=== PATIENT | female | born 1960 | race African-American/Black ===

== ENCOUNTER 2016-04-27 18:15 | Inpatient (IN) | payer OTHER ==
[~2016-04-27] VITALS: Ht 165.1 cm; Wt 73.9 kg
[~2016-04-27 18:15] MED LIST: AMLODIPINE10 MG PO; AMOXICILLIN500 MG PO; BENTYL20 MG PO; CARISOPRODOL350 MG PO; CIPRO500 M1 PO; FLAGYL500 MG PO; FUROSEMIDE40 MG PO; INTERMEZZO1.75 MG PO; LEVETIRACETAM500 MG PO; LYRICA75 MG PO; METOPROLOL TAR100 MG PO; MYCOPHENOLIC A360 MG PO; OMEPRAZOLE40 MG PO; OXYCODONE HCL15 MG PO; OXYCODONE HYDRO30 MG PO; OXYCONTIN60 MG PO; PERCOCET 325 MG1 TA2 PO; PREDNISONE5 MG PO; PROGRAF 0.5MG0.5 MG PO; PROGRAF 1MG1 MG PO; STARLIX PO; TACROLIMUS1 MG PO; VALTREX1 GM PO; ZOFRAN ODT4 M1 PO; ZOFRAN4 M1 PO; ZOLPIDEM TART12.5 MG PO; [UNRECOGNIZED DRUG - OTHER] PO
--- NOTE | 2016-04-27 18:35 | NUR ---
PT TO ROOM18 BIBA FROM HOME UNRESPONSIVE. PER FAMILY PT HAS BEEN SLEEPING ALL DAY, LAST TIME PT SEEN AWAKE AROUND 1400. PT RECEIVED 0.8 OF NARCAN IV BY COMPUTER FORENSICS INVESTIGATOR AND BECAME RESPONSIVE TO TACTILE STIMULI AND VOICE. ON ARRIVAL PT UNRESPONSIVE, PUPILS 6MM FIXED, NSR ON MONITOR 90'S, PT ON O2 2L NC, O2SAT 95%, RR 14. EKG DONE, PT SENT TO CAT SCAN BY STRETCHER. HX OF CHF,HTN,CVA,SEIZURE,KIDNEY TRANSPLANT.
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
--- NOTE | 2016-04-27 19:00 | NUR ---
PT RETURNED FROM CT. BLOOD WORK DONE BY ALMA DUDLEY. IV EST RH G20. RAD AT BEDSIDE FOR CHEST XRAY.
[2016-04-27 19:08] LABS: ABSOLUTE BASOPHIL COUNT 0 /CUMM (0.0-0.2); ABSOLUTE EOSINOPHIL COUNT 0.1 /CUMM (0.0-0.7); ABSOLUTE LYMPH COUNT 2.4 /CUMM (1.2-3.4); ABSOLUTE MONOCYTE COUNT 0.5 /CUMM (0.10-0.60); BASOPHIL % 0.5 % (0.0-2.0); EOSINOPHIL % 0.7 % (0-5); GRANULOCYTE % 66.1 % (42.2-75.2); HEMATOCRIT 46.1 % (37-47); MEAN CORPUSCULAR HGB 31.2 PG (27.0-31.0); MEAN CORPUSCULAR HGB CONC 33.1 G/DL (33.0-37.0); MEAN CORPUSCULAR VOLUME 94.3 FL (81.0-99.0); MEAN PLATELET VOLUME 8.4 FL (7.4-10.4); PLATELET COUNT 224 /CUMM (130-400); RBC DISTRIBUTION WIDTH 16.2 % (11.5-14.5); RED BLOOD CELL CT 4.89 /CUMM (4.20-5.40); WHITE BLOOD CELL COUNT 9.1 /CUMM (4.8-10.8)
[2016-04-27] MEDS ORDERED: PROGRAF1 M1 PO ×2 (19:10→19:11)
[2016-04-27] MEDS ORDERED: PROGRAF0.5 MG PO (19:11)
[2016-04-27] MEDS ORDERED: AMLODIPINE BESYL5 M1 PO (19:12)
[2016-04-27] MEDS ORDERED: HORIZANT600 M1 (19:13)
--- NOTE | 2016-04-27 19:15 | RADIOLOGY REPORT ---
EXAMINATION: XR PORTABLE CHEST CLINICAL INFORMATION: Question pneumonia COMPARISON: Chest x-ray 09/03/2014 TECHNIQUE: Portable AP supine view of the chest was obtained. FINDINGS: Heart size is upper limits of normal. The aorta is tortuous and ectatic and unchanged. Pulmonary vascularity is within normal limits. There is some subsegmental atelectasis at the left base. No other focal finding is seen in the lungs. There is no pneumothorax or pleural effusion. There is an incidental azygos lobe and fissure in the right apex. No acute bony abnormality is seen IMPRESSION: There is some subsegmental atelectasis of the left base new since prior study. Lungs are otherwise clear. No other change.
[2016-04-27 19:16] LABS: PT 11.8 SEC (9.4-12.5); PTT 29 SEC (25-37)
--- NOTE | 2016-04-27 19:17 | NUR ---
RESP AT BEDSIDE FOR ABG.
[2016-04-27] MEDS ORDERED: VITAMIN D1000 UNIT PO (19:18)
[2016-04-27] MEDS ORDERED: MULTI-DAY VITA1 EACH PO (19:18)
--- NOTE | 2016-04-27 19:25 | CT SCAN REPORT ---
EXAMINATION: CT HEAD WITHOUT CONTRAST CT CERVICAL SPINE WITHOUT CONTRAST CLINICAL INFORMATION: Unresponsive. Assess for bleed or injury. COMPARISON: MRI scan cervical spine 08/03/[address] scan of the head 08/25/2006. TECHNIQUE: Multidetector CT imaging of the head and cervical spine was performed without the use of intravenous contrast. Coronal and sagittal reformatted images were generated at the technologist workstation. DLP: 1871.6 mGy-cm. FINDINGS: CT head: There is no evidence of acute intracranial hemorrhage or territorial infarction. No abnormal mass-effect or midline shift is seen. Copeland to white matter differentiation is well preserved. No extra-axial fluid collections are identified. The ventricles are normal in size. There is no abnormal attenuation within the brain parenchyma. The osseous structures and soft tissues are normal. The mastoid air cells are well-aerated. There is mild mucoperiosteal thickening in the inferior left maxillary sinus. CT cervical spine: There is reversal of the cervical lordosis. There is a mild degenerative retrolisthesis of C6 on C7, which was less prominent on the prior study. There is marked narrowing of intervertebral disc height at this level with degenerative endplate contour changes. There is also narrowing of intervertebral disc height at C5-C6. There are marginal osteophytes at both these levels. There are no acute compression fractures and vertebral body heights are maintained. There is foraminal narrowing at C5-C6 and C6-C7 bilaterally. The lateral masses of C1 and C2 are normally aligned and the dens is intact. Atlantoaxial alignment is maintained. The prevertebral soft tissues are unremarkable. There is an incidental azygous lobe. The visualized lung apices are unremarkable. IMPRESSION: 1. There are no acute intracranial findings. 2. There are multilevel degenerative changes in the cervical spine with narrowing of intervertebral disc height and foraminal narrowing at C5-C6 and C6-C7 and there is a degenerative retrolisthesis of C6 on C7 as described above. 3. There are no acute fractures or subluxations in the cervical spine.
--- NOTE | 2016-04-27 19:42 | NUR ---
PT REMAINES UNRESPONSIVE, RESPONSES TO PAINFUL STIMULI BY MOANING, VSS. FAMILY AT BEDSIDE.
--- NOTE | 2016-04-27 20:28 | NUR ---
PT STRAIGHT CATH WITH STERILE TECHNIQUE, 150ML OF CLEAR YELLOW URINE OBTAINED AND SENT TO LAB.
--- NOTE | 2016-04-27 20:55 | NUR ---
PT AWAIKING, OPENING EYES, MOANING, BUT STILL NON-VERBAL. PT DOESN'T FOLLOW COMMANDS. VSS. SITTER AND FAMILY AT BEDSIDE.
--- NOTE | 2016-04-27 21:59 | NUR ---
2 LAV,GREEN,GALLAGHER TUBES DRAWN AND SENT TO LAB BY ALMA DUDLEY. HOUSE STAFF TO BEDSIDE FOR PT EVAL.
--- NOTE | 2016-04-27 22:21 | NUR ---
PT TO ROOM 228 BED 1
--- NOTE | 2016-04-27 22:30 | NUR ---
CRITICAL TEST RESULTS [id number] DOUGLAS TANG 56 F TESTS AND RESULTS: LACTIC ACID 4.4 Results received and read back by: NELL JONES Results received date and time: 04/27/160 The following provider was notified of the results, and read the results back: MD DENA Notified date and time: 04/27/16 at 2230
--- NOTE | 2016-04-27 22:31 | NUR ---
NS INFUSIG AT 75ML/HR PER EMAR.
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
--- NOTE | 2016-04-27 23:56 | NUR ---
LAB NEEDS SST TUBE FOR ACETONE LEVEL.
--- NOTE | 2016-04-27 23:57 | NUR ---
PT'S ASSIGNMENT 107
[2016-04-28] VITALS (8 sets, daily range): BP systolic 111–166; BP diastolic 70–90
--- NOTE | 2016-04-28 00:08 | NUR ---
REPORT GIVEN TO ICU TO THANH JACINTO.
--- NOTE | 2016-04-28 00:45 | RADIOLOGY REPORT ---
EXAMINATION: ABDOMEN 1 VIEW CLINICAL INFORMATION: Abnormal bowel sounds. COMPARISON: None. TECHNIQUE: A supine view of the abdomen is provided. FINDINGS: There are no dilated loops of small bowel. There are no air-fluid levels. There is no appendicolith. The visualized lung bases are clear. The osseous structures are unremarkable. Surgical clips are present within the right hemiabdomen and pelvis. IMPRESSION: Unremarkable bowel gas pattern.
--- NOTE | 2016-04-28 00:49 | NUR ---
PATIENT ARRIVES FROM ER VIA STRETCHER.CALLING OUT BUT NOT ANSWERING QUESTIONS DIRECTLY. NOT ORIENTED.NOT FOLLOWING COMMANDS BUT MOVING UPPER EXTREMITIES ACTIVELY.PUPILS EQUAL #5 AND REACTIVE TO LIGHT.SPEECH IS CLEAR BUT CONFUSED.MONITOR SINUS RHYTHM AT RATE OF 96.LUNG SOUNDS CLEAR. SAT=96% ON 2L NASAL O2.
--- NOTE | 2016-04-28 01:37 | Admission Certification ---
Admission Certification Certification Statement - As attending physician, I certify that at the time of - admission, based on clinical presentation, severity of - symptoms, need for further diagnostic testing and - therapeutic interventions, and risk of adverse outcomes - without in-hospital treatment, in my clinical assessment, - this patient requires an acute hospital stay for a minimum - of two nights or longer. I have also considered psychsocial - factors such as support system, advanced age, financial - issues, cognitive issues, and failed out-patient treatments, - past re-admission history, safety of patient, and lack of - compliance as applicable. Specific rationale supporting this admission is: Encephalopathy
--- NOTE | 2016-04-28 03:54 | NUR ---
PATIENT ORIENTED TO PERSON.ABLE TO TELL ME HER AGE. NOT ANSWERING QUESTION REGARDING MONTH. ABLE TO RAISE LEGS AND ARMS WITHOUT DRIFT. FOLLOWING COMMANDS.SPEECH IS CLEAR.
[2016-04-28 05:20] LABS: ABSOLUTE BASOPHIL COUNT 0 /CUMM (0.0-0.2); ABSOLUTE EOSINOPHIL COUNT 0 /CUMM (0.0-0.7); ABSOLUTE GRANULOCYTE CT 16.6 /CUMM (1.4-6.5); ABSOLUTE LYMPH COUNT 1.5 /CUMM (1.2-3.4); ABSOLUTE MONOCYTE COUNT 0.5 /CUMM (0.10-0.60); BASOPHIL % 0.1 % (0.0-2.0); EOSINOPHIL % 0.1 % (0-5); HEMATOCRIT 44.8 % (37-47); MEAN CORPUSCULAR HGB 31.4 PG (27.0-31.0); MEAN CORPUSCULAR HGB CONC 33.1 G/DL (33.0-37.0); MEAN CORPUSCULAR VOLUME 94.8 FL (81.0-99.0); MEAN PLATELET VOLUME 8.5 FL (7.4-10.4); PLATELET COUNT 209 /CUMM (130-400); RBC DISTRIBUTION WIDTH 16.2 % (11.5-14.5); RED BLOOD CELL CT 4.72 /CUMM (4.20-5.40)
[2016-04-28 05:35] LABS: WHITE BLOOD CELL COUNT 18.7 /CUMM (4.8-10.8)
--- NOTE | 2016-04-28 05:41 | NUR ---
PATIENT VOMITED APPROXIMATELY 75 ML OF MATHEWS VOMITUS.TURNED ON SIDE.O2 SAT REMAINS 98-100%.BRUISE ON R BUTTOCK NOTED.
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
--- NOTE | 2016-04-28 10:59 | RADIOLOGY REPORT ---
EXAMINATION: XR PORTABLE CHEST CLINICAL INFORMATION: Altered mental status. Elevated white count. COMPARISON: Multiple chest x-rays most recent prior dated 04/27/2016 TECHNIQUE: Portable AP view of the chest was obtained. FINDINGS: New airspace disease noted in the right midlung suspicious for evolving pneumonia. Slightly decreased right lung volume. Left lung is clear. IMPRESSION: Interval development of consolidation in the right mid lung suspicious for evolving pneumonia in the appropriate clinical setting. Repeat chest x-ray after treatment recommended.
--- NOTE | 2016-04-28 11:24 | Event Note ---
Event Note Event Note: This is a 56 years old lady who had a renal transplant in 2009 at [facility]. The patient has continued to make his follow-up with wildlife ecologist at [facility] however recently had wildlife ecologist retired and she has started seeing a new one she cannot remember the name. Provided the number for wildlife ecologist office [phone], and was dilated to leave a voicemail I left a message at around 11 AM on April said for the office to call me through the hospital number with my pager so that we can provide information about the admission solicit information if they have any interventions they like to be instituted. The wildlife ecologist office called back Patient is under care of Dr. Joey Burger. Around 2PM Dr. Burger called and confirmed home medications for the patient.
--- NOTE | 2016-04-28 12:31 | ULTRASOUND REPORT ---
EXAMINATION: US ABDOMEN COMPLETE CLINICAL INFORMATION: Altered mental status. Abnormal LFTs. Intoxication. COMPARISON: CT scan of the abdomen and pelvis 03/23/2016. TECHNIQUE: Real-time imaging of the abdominal viscera. FINDINGS: PANCREAS: The visualized pancreatic head and body are normal in appearance. The remainder of the pancreas is obscured from visualization by the overlying bowel gas. ABDOMINAL AORTA: The proximal segment is normal in caliber. INFERIOR VENA CAVA: Visualized portions are normal. LIVER: The liver demonstrates normal size and contour. There is diffuse increased echogenicity consistent with hepatic steatosis. There are no clinical hepatic lesions lesion or intrahepatic biliary duct dilatation. GALLBLADDER: The COMMON BILE DUCT: Normal in caliber measuring 0.7 cm in diameter. RIGHT KIDNEY: The right kidney is atrophic and is difficult to visualize. LEFT KIDNEY: The left kidney is atrophic, and measures 7.8 cm. There is a 1.4 cm cyst. SPLEEN: The spleen measures 8.0 cm in maximum dimension. FREE FLUID: None. OTHER: There is a right lower quadrant transplanted kidney, which measures 11 cm. There is no hydronephrosis or perinephric abnormality. IMPRESSION: 1. There is diffuse increased echogenicity of the liver consistent with hepatic steatosis. 2. The right kidney is atrophic and are not visualized. The left kidney is small and there are is a left renal cyst. 3. There is a transplant kidney in the right lower quadrant.
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
--- NOTE | 2016-04-28 23:16 | ELECTROENCEPHALOGRAM REPORT ---
Electroencephalogram Report Electroencephalogram Results Date of service: 04/28/16 Attending MD: FADUMO SKY MD Concrete Finishing Machine Operator: Genia EEG Number: [id number] Test Utilizes: Test Utilizes a 10-20 system, 21 lead, 18 channel digital recording Pertinent Hx/Physical/Neuro Findings/Clin Diagnosis: 56 year old with history of seizures, found on floor with an alteration in mental status. Inpatient Medications: Current Medications Sig/Satish Start time Last Medication Dose Route Stop Time Status Admin Acetaminophen 1,000 MG Q6P PRN 04/28 1430 AC 04/28 N/A 1 UNIT IV 2030 Amlodipine Besylate 5 MG DAILY 04/28 1000 AC PO Ampicillin Sodium/ 1,500 MG Q6 04/28 1200 DC Sulbactam Sodium IV Sodium Chloride 100 ML Ampicillin Sodium/ 1,500 MG Q6H 04/28 1100 AC 04/28 Sulbactam Sodium IV 2207 Sodium Chloride 100 ML Cholecalciferol 1,000 IU DAILY 04/28 1000 AC PO Dextrose 25 GM ONCE ONE 04/28 1000 DC 04/28 IV 04/28 1001 0956 Heparin Sodium 5,000 UNIT Q8 04/27 2258 AC 04/28 (Porcine) SC 2204 Influenza Virus 0.5 ML ONCE ONE 04/28 0815 DC Vaccine IM 04/28 0816 Insulin Aspart 0 TIDAC 04/28 1200 AC SC Insulin Human Regular 0 Q6 04/27 2359 DC 04/28 SC 0624 Lactobacillus 1 CAP DAILY 04/28 1000 AC Acidophilus PO Levetiracetam 500 MG BID 04/28 2300 AC Sodium Chloride 100 ML IV Levetiracetam 500 MG ONCE ONE 04/28 1045 DC 04/28 Sodium Chloride 100 ML IV 04/28 1059 1032 Levetiracetam 500 MG BID 04/28 1000 DC PO Levetiracetam 500 MG BID 04/28 0130 DC 04/28 Sodium Chloride 100 ML IV 0151 Lorazepam 0 Q1P PRN 04/28 1830 AC / IV 1844 Lorazepam 1 MG ONE ONE 04/28 1645 DC 02/03 IV 03 1646 1640 Magnesium Sulfate 1 GM Q2H 04/28 0900 DC 02 Dextrose/Water 100 ML IV 04/28 1259 1129 Metoprolol Tartrate 5 MG Q6H 04/28 1400 AC 04/28 IV 2001 Metoprolol Tartrate 100 MG BID 04/28 1000 AC PO Metoprolol Tartrate 5 MG Q12 04/28 0000 DC 02 IV 0854 Morphine Sulfate 2 MG ONCE ONE 04/28 1230 DC 02 IV 04/28 1231 1230 Multivitamins 1 TAB DAILY 04/28 1000 AC Therapeutic PO Mycophenolate Mofetil 650 MG BID 04/28 1000 DC PO Ondansetron HCl 4 MG Q6 04/28 1800 AC 04/28 IV 1846 Ondansetron HCl 4 MG Q6P PRN 04/28 0830 DC 02 IV 1433 Ondansetron HCl 4 MG .[ONCE PRN] PRN 04/28 0600 DC 04/28 IV 04/28 0601 0614 Ondansetron HCl 4 MG .[ONCE PRN] PRN 04/28 0145 DC 04/28 IV 04/28 0146 0148 Oxycodone HCl 10 MG Q6P PRN 04/28 0015 AC 04/28 PO 1840 Pantoprazole Sodium 40 MG DAILY 04/28 1000 AC 04/28 IV 0909 Potassium Chloride 20 MEQ Q6 04/28 1200 CAN Dextrose/Sodium 1,000 ML IV Chloride Potassium Chloride 20 MEQ Q6H 04/28 1030 AC 04/28 Dextrose/Sodium 1,000 ML IV 2207 Chloride Potassium Chloride 20 MEQ Q6H 04/28 0945 DC Sodium Chloride 1,000 ML IV Potassium Chloride 150 MEQ ONCE ONE 04/28 0930 CAN IV / 0931 Prednisone 5 MG DAILY 04/28 1000 AC PO Sodium Chloride 1,000 ML Q13H 04/28 1645 AC 02/ IV 04/29 0244 1655 Sodium Chloride 1,000 ML BOLUS ONE 04/28 1245 DC 02/ IV 02/03 1344 1245 Sodium Chloride 500 ML BOLUS ONE 04/28 1045 DC 02/ IV 02/ 1144 1050 Sodium Chloride 500 ML BOLUS ONE 04/28 0730 DC 02/ IV 02/ 0829 0800 Sodium Chloride 1,000 ML Q13H 04/27 2345 DC 04/28 IV 0124 Sodium Chloride 1,000 ML ONCE ONE 04/27 2230 DC 02 IV 02/03 1149 2230 Tacrolimus 3 MG QPM 04/28 2200 CAN PO Tacrolimus 2.5 MG QAM 04/28 1000 CAN PO Trimethobenzamide HCl 200 MG TID 04/28 1000 AC 04/28 IM 2207 Interpretation: The recording demonstrates a loss of the normal frequency gradient due to diffusely fast low amplitude beta rhythms. There is no focal slowing. There are no epileptiform spikes or sharps or any other paroxysmal features. The posterior dominant rhythm is indiscernible. Impression: Normal EEG recording with fast beta rhythms which are likely indicative of anxiety of a medication effect.
[2016-04-29] VITALS (11 sets, daily range): BP systolic 119–146; BP diastolic 60–92
--- NOTE | 2016-04-29 00:58 | NUR ---
REC'D PT IN BED ASLEEP @1999. FAMILY WERE IN THE ROOM BUT STAYED FOR ALITTLE VISIT. NEUROS ASSESSED. VERY DROWSEY BUT ABLE TO FOLLOW COMMANDS. TREMORS TO MAKENNA HANDS NOTED WHEN ARM EXTENDED. CIWA 3 D/T TREMORS. ORIENTED X3. ROBIN 3-4MM BRISK. NIH 1 D/T DROWSEY. ZHENG WELL BUT WEAK. ST ON THE THE MONITOR HR STARTED IN 120'S & NOW IN 110'S. SBP ALSO IN 130-150'S & NOW IN 110-120'S. ON 2LNC POX 98-100'S LS CLEAR BUT MOSTLY DIMINISHED THROUHOUT THE LOBES. NO N/V EPISODES FOR 8HRS. ON ZOFRAN/TIGAN ATC. FC INSERTED @1954 BY RN ANGELINE & BC DONE & SENT. TEMP 101.3 TYLENOL IV GIVEN. AFTER 1HR TEMP 100.6. SKIN WARM TO TOUCH NO SWEATING. SKIN INTACT. HAS A LG HEMATOMA TO R OUTER ASPECT OF THE THIGH. ON IVF D5 1/2NS W/4MEQ KCL DECREASE RATE FROM 150 TO 100ML/HR. NO SEIZURE ACTIVITY. @0 HAD HS PO MEDS TO BE GIVEN BUT PT REFUSED OR WAS TOO LETHARGIC. INFORMED DR. TINEO PT WAS TOO LETHARGIC & REFUSED MEDS AT THIS TIME. NO C/O PAIN VOICED. T&P ON TOTAL CARE BED. CONT TO MONITOR.
--- NOTE | 2016-04-29 02:18 | NUR ---
WHEN IN TO GIVE PT HER 0200 LOPRESSOR. BP 144/81 & REMAINS ST W/HR OF 118. HS CARE GIVEN. PT STARTED TO SHIVER ALL OVER HER BODY. CHECKED AXILLA TEMP 100.8 & TEMPORAL ARTYERY 100.9. COVER HER BACK W/BLANKETS. AFTER LEAVING PT ALONE & COVERED UP W/BLANKETS PT STOPPED SHIVERING. [facility]
--- NOTE | 2016-04-29 03:08 | NUR ---
PT CALLED FOR THE RN & WANTED TO GO TO THE TOILET. INFORM PT THAT SHE'S TOO WEAK/DROWSEY TO GET OOB. BEDPAN OFFER. PT ALREADY HAD INC OF LG LOOSE MUCOID STOOL GREEN IN COLOR. PLACE ON THE BEDPAN. PT CONT TO HAVE UNCONTROLLABLE SHIVER, SKIN WARM TO TOUCH. RECHECK TEMP PER RECTUM & TEMP REACHED 102F. INFORMED DR. TINEO RE. PT'S STATUS. MD WENT TO SEE PT & ASSESS. PT GETTING VERY ANXIIOUS. PER CIWA >10 ATIVAN 1MG IV GIVEN, ALSO TYLENOL IV HUNG. BC X2 DONE YESTERDAY. AFTER FEW MINUTES & PT STOPPED SHIVERING. CONT TO MONITOR.
[2016-04-29 05:29] LABS: ABSOLUTE BASOPHIL COUNT 0 /CUMM (0.0-0.2); ABSOLUTE EOSINOPHIL COUNT 0 /CUMM (0.0-0.7); ABSOLUTE GRANULOCYTE CT 13.4 /CUMM (1.4-6.5); ABSOLUTE MONOCYTE COUNT 0.5 /CUMM (0.10-0.60); BASOPHIL % 0.3 % (0.0-2.0); EOSINOPHIL % 0.1 % (0-5); GRANULOCYTE % 89.2 % (42.2-75.2); MEAN CORPUSCULAR HGB 31.5 PG (27.0-31.0); MEAN CORPUSCULAR HGB CONC 33.4 G/DL (33.0-37.0); MEAN CORPUSCULAR VOLUME 94.3 FL (81.0-99.0); MEAN PLATELET VOLUME 9.2 FL (7.4-10.4); RBC DISTRIBUTION WIDTH 16.2 % (11.5-14.5); RED BLOOD CELL CT 3.56 /CUMM (4.20-5.40)
[2016-04-29 05:30] LABS: HEMATOCRIT 33.5 % (37-47)
[2016-04-29 05:32] LABS: PLATELET COUNT 105 /CUMM (130-400)
--- NOTE | 2016-04-29 07:53 | ECHOCARDIOGRAM REPORT ---
DOUGLAS TANG Age: 56 : 1960 Gender: F Exam Date: 04/28/2016 09:59 Exam Location: [facility] Ht (in): 66 Wt (lb): 165 BSA: 1.88 BP: 130 / 86 Ordering Physician: DENA FARAH MD Referring Physician: DENA FARAH MD Technologist: Star Miller VICKY Room Number: 10 Indications: HEART FAILURE Rhythm: Sinus tachycardia Technical Quality: technically limited study FINDINGS Left Ventricle Small left ventricle with normal wall thickness. Hyperdynamic systolic function with no obvious regional wall motion abnormalities. Diastolic filling pattern consistent with impaired LV relaxation. The ejection fraction is visually estimated at 85%. Right Ventricle The right ventricle is mildly enlarged with normal function. Right Atrium The right atrium is normal in size. Left Atrium The left atrium is normal in size. The interatrial septum is intact. Mitral Valve The mitral valve is normal in structure and function. There is trace mitral regurgitation. Aortic Valve Structurally normal aortic valve without significant sclerosis or stenosis. There is no aortic regurgitation. Tricuspid Valve The tricuspid valve is normal in structure and function. There is mild tricuspid regurgitation. Pulmonary artery systolic pressure is mildly elevated to 46mmHg. Pulmonic Valve Structurally normal pulmonic valve. There is no pulmonic regurgitation. Pericardium Normal pericardium without effusion. No pleural effusion. Great Vessels Normal aortic root dimension. The aortic arch and great vessels are well seen and are normal. CONCLUSIONS 1. Small and likely underfilled left ventricle. 2. Hyperdynamic EF of 85%. 3. Trace mitral regurgitation. 4. Mild tricuspid regurgitation. 5. Mild pulmonary hypertension. Reji Ramos M.D. (Electronically Signed) Final Date: 29 April 2016 07:53 MEASUREMENTS (Male / Female) Normal Values 2D ECHO LV Diastolic Diameter PLAX 3.5 cm 4.2 - 5.9 / 3.9 - 5.3 cm LV Systolic Diameter PLAX 1.6 cm 2.1 - 4.0 cm LV Fractional Shortening PLAX 54.3 % 25 - 46 % LV Ejection Fraction 2D Teich 85.9 % IVS Diastolic Thickness 0.9 cm LVPW Diastolic Thickness 0.9 cm LV Relative Wall Thickness 0.5 RV Internal Dim ED PLAX 3.5 cm 1.9 - 3.8 cm LVOT Diameter 1.9 cm Aortic Root Diameter 3.2 cm LA Systolic Diameter LX 2.8 cm 3.0 - 4.0 / 2.7 - 3.8 cm Ascending Aorta Diameter 3.2 cm DOPPLER AV Peak Velocity 258.0 cm/s AV Peak Gradient 26.6 mmHg AV Mean Velocity 169.0 cm/s AV Mean Gradient 14.0 mmHg AV Velocity Time Integral 46.0 cm LVOT Peak Velocity 188.0 cm/s LVOT Peak Gradient 14.1 mmHg LVOT Mean Velocity 115.0 cm/s LVOT Mean Gradient 7.0 mmHg LVOT Velocity Time Integral 33.2 cm LVOT Stroke Volume 94.1 cm AV Area Cont Eq vti 2.0 cm AV Area Cont Eq pk 2.1 cm MV Peak Velocity 215.0 cm/s MV Peak Gradient 18.5 mmHg MV Mean Velocity 105.0 cm/s MV Mean Gradient 6.0 mmHg Mitral E Point Velocity 101.0 cm/s Mitral A Point Velocity 197.0 cm/s Mitral E to A Ratio 0.5 MV PHT Velocity 119.0 cm/s MV Deceleration [place] 722.0 cm/s MV Pressure Half Time 49.4 ms MV Area PHT 4.4 cm TR Peak Velocity 320.0 cm/s TR Peak Gradient 41.0 mmHg Right Atrial Pressure 5.0 mmHg Pulmonary Artery Systolic Pressu 46.0 mmHg Right Ventricular Systolic Press 46.0 mmHg PV Peak Velocity 131.0 cm/s PV Peak Gradient 6.9 mmHg PV Mean Velocity 88.3 cm/s PV Mean Gradient 4.0 mmHg PV Velocity Time Integral 31.6 cm LV E' Lateral Velocity 11.6 cm/s Mitral E to LV E' Lateral Ratio 8.7 LV E' Septal Velocity 5.4 cm/s Mitral E to LV E' Septal Ratio 18.8
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
[2016-04-29 09:41] LABS: ABSOLUTE BASOPHIL COUNT 0 /CUMM (0.0-0.2); ABSOLUTE EOSINOPHIL COUNT 0 /CUMM (0.0-0.7); ABSOLUTE GRANULOCYTE CT 12.5 /CUMM (1.4-6.5); ABSOLUTE LYMPH COUNT 0.9 /CUMM (1.2-3.4); ABSOLUTE MONOCYTE COUNT 0.6 /CUMM (0.10-0.60); BASOPHIL % 0.3 % (0.0-2.0); EOSINOPHIL % 0.2 % (0-5); GRANULOCYTE % 88.7 % (42.2-75.2); HEMATOCRIT 32.4 % (37-47); MEAN CORPUSCULAR HGB 31.2 PG (27.0-31.0); MEAN CORPUSCULAR HGB CONC 32.9 G/DL (33.0-37.0); MEAN CORPUSCULAR VOLUME 94.7 FL (81.0-99.0); MEAN PLATELET VOLUME 9.1 FL (7.4-10.4); PLATELET COUNT 105 /CUMM (130-400); RBC DISTRIBUTION WIDTH 16.1 % (11.5-14.5); RED BLOOD CELL CT 3.43 /CUMM (4.20-5.40); WHITE BLOOD CELL COUNT 14.1 /CUMM (4.8-10.8)
--- NOTE | 2016-04-29 11:14 | PN- Pulmonary ---
Subjective HPI/Critical Care Issues: More awake alert and oriented 3 today. Does not have any other complaints other than being fatigued. No fever, chills Overall, continues to be febrile with fever to 102. Complaints of cough. Adequate urine output. Her hemoglobin seems to have reduced significantly since yesterday. However patient is on significant amount of IV fluids. Does not complain of any abdominal pain, diarrhea. Significant data Other customer sales consultant notes reviewed. Neurology consult noted there. Recommended seizure precautions fluid resuscitation and Keppra. Renal consult noted. They did recommend adequate hydration, DVT precautions and to continue her immunosuppressants. SIGNIFICANT DATA Potassium is 3.6. Her liver enzymes are elevated. White count 14.1, hemoglobin 10.7 with a significant drop since admission after intravenous fluids. Platelets are 105. White count 14 ABG reviewed. Showed mild hypoxemia. Chest x-ray showed right mid lung infiltrate suggestive of a pneumonia. Ultrasound of the liver showed hepatic steatosis right kidney is atrophic left kidney, small Patient has a transplanted kidney in the right lower quadrant. CT of the head showed multiple degenerative disc disease. Previous CT of the abdomen showed mild descending colon inflammation. This was done few weeks ago with biliary duct prominence. Objective Vital Signs & I&O Last 24 Hrs of Vitals and I&O: Vital Signs Date Time Temp Pulse Resp B/P Pulse O2 O2 Flow FiO2 Ox Delivery Rate 04/29 0800 99 Nasal 2.0L Cannula 04/29 0800 99.8 113 29 141/88 99 Nasal 2.0L Cannula / 0600 100.0 111 20 132/82 02/04 0400 101.6 02/ 0400 101.6 118 26 131/80 02/04 0400 98 Nasal 2.0L Cannula / 0300 102.0 116 32 146/92 02/04 0252 102.0 02/04 0221 100.8 02/04 0205 118 144/81 02/04 0200 100.8 118 31 144/61 02/04 0000 100.4 114 22 120/66 02/04 0000 100.4 114 22 120/66 100 Nasal 2.0L Cannula 02/04 0000 100 Nasal 2.0L Cannula / 2204 119 111/70 02/03 2200 100.6 114 26 111/70 02/2128 100.6 022029 101.3 02/2000 135 154/87 02/1999 101.3 123 33 154/87 04/28 2000 100 Nasal 2.0L Cannula 04/28 1945 101.8 132 32 155/90 04/28 1800 101.9 130 32 166/86 04/28 1600 101.3 124 36 140/78 04/28 1600 100 Nasal 2.0L Cannula 04/28 1539 101.3 124 36 140/78 100 Nasal 2.0L Cannula 04/28 1530 100.9 04/28 1431 101.9 04/28 1429 128 147/82 04/28 1200 99 Nasal 2.0L Cannula Intake & Output 04/29 1600 04/29 0800 04/29 0000 Intake Total 960 1374 Output Total 600 1150 Balance 360 224 Intake, IV 960 1374 Intake, Oral 0 0 Number 1 1 Bowel Movements Output, Urine 600 1150 Impression/Plan Impression/Plan Impression/Plan: IMPRESSION this is a 56-year-old lady with the previous history of a known seizure disorder, kidney transplant in 2009 due to hypertension-induced renal failure on significant immunosuppressive therapy, hypertension, GERD, dyslipidemia, type 2 diabetes, chronic diastolic heart failure, previous recurrent pyelonephritis, Alcohol use, now comes in with * Recent alcohol intake with altered mental status with high fever which is slowly improving * Sig metabolic acidosis with rapid improvement - probably related to alcohol withdrawal seizures as sig sepsis seems less likely * Significant fever in an immunosuppressed patient with chest x-ray highly suggestive of an aspiration pneumonia. Other intra-abdominal pathology seems less likely. Unlikely meningitis as she has improved * Status post renal transplant hence immunosuppressed. * Diabetes. * Previous history of seizure. Neurology on board. NO active evidence of meningitis * Chronic pain medication use. Watch out for any withdrawal. * Electrolyte abnormality with hypokalemia upon admission with hyper natremia which is improved. * Patient appears to be adequately fluid resuscitated. * Significant lactic acidosis which seems to have now resolved, probably related to low flow state and seizure disorder. * Low hemoglobin, watch for any GI bleed, but this probably from hemodilution RECOMMENDATION * Reduce intravenous fluids to 60 mL per hour. * Watch for seizures. * Continue Keppra. * Continue antibiotics and please call infectious disease consult as patient is immunosuppressed on multiple medications, now with persistent fever with what looks like an aspiration pneumonitis. * Order Legionella urinary antigen and strep pneumo antigen. * Watch hemoglobin and hematocrit. * If the patient becomes more short of breath and if the clinical evidence is suggestive of fluid overload give her one dose of intravenous Lasix. * Once she starts taking by mouth can discontinue IV fluids. * Continue immunosuppressive therapy for renal transplant Patient is critically ill. Total time spent 45 minutes
--- NOTE | 2016-04-29 18:51 | NUR ---
2359-5979: PT ANXIOUS, TREMORS NOTED, COMPLAINS OF HEADACHE AND BACK PAIN. CIWA SCORE 8, IV ATIVAN GIVEN PER CIWA PROTOCOL. FAMILY AT BEDSIDE. VSS. URINE OUTPUT ADEQUATE. PT HAS POOR PO INTAKE.
[2016-04-30] VITALS (8 sets, daily range): BP systolic 110–134; BP diastolic 60–92
--- NOTE | 2016-04-30 00:40 | NUR ---
PT WAS VERY ANXIOUS AND RESTLESS EARLIER, A/O X 3 ZHENG TO COMMAND NOW SLEEPING. HAD TEMP 102, DR TINEO NOTIFIED. EXPELLED LG AMT LT GREEN LIQUID STOOL OB+
[2016-04-30 04:56] LABS: ABSOLUTE BASOPHIL COUNT 0.1 /CUMM (0.0-0.2); ABSOLUTE EOSINOPHIL COUNT 0.1 /CUMM (0.0-0.7); ABSOLUTE GRANULOCYTE CT 9.7 /CUMM (1.4-6.5); ABSOLUTE MONOCYTE COUNT 0.5 /CUMM (0.10-0.60); BASOPHIL % 0.5 % (0.0-2.0); EOSINOPHIL % 1.2 % (0-5); GRANULOCYTE % 85.4 % (42.2-75.2); HEMATOCRIT 32.3 % (37-47); MEAN CORPUSCULAR HGB 31.7 PG (27.0-31.0); MEAN CORPUSCULAR HGB CONC 33.1 G/DL (33.0-37.0); MEAN CORPUSCULAR VOLUME 95.8 FL (81.0-99.0); MEAN PLATELET VOLUME 9.4 FL (7.4-10.4); PLATELET COUNT 95 /CUMM (130-400); RBC DISTRIBUTION WIDTH 16.1 % (11.5-14.5); RED BLOOD CELL CT 3.37 /CUMM (4.20-5.40)
[2016-04-30 05:43] LABS: WHITE BLOOD CELL COUNT 11.4 /CUMM (4.8-10.8)
--- NOTE | 2016-04-30 09:32 | PN- Pulmonary ---
Subjective HPI/Critical Care Issues: More awake and alert today Continues to improve Complaints of mild abdominal discomfort MAXIMUM TEMPERATURE is 101.2 Blood pressure stable O2 sat is 94% on room air Urinary Legionella and pneumococcal antigen negative Stool for C. difficile negative so far all the cultures are unremarkable Chest x-ray pending Blood work reviewed BUN/creatinine stable anion gap normal lactic acid normal liver enzymes are trending down bilirubin 0.7 alkaline phosphatase is normal White count down to 11 platelets persistently low at 95 Hemoglobin stabilizing at 10.7 after significant IV fluids So far no evidence of active bleeding Objective Current Medications: Current Medications Sig/Satish Start time Last Medication Dose Route Stop Time Status Admin Acetaminophen 1,000 MG Q6P PRN 04/28 1430 AC 04/29 N/A 1 UNIT IV 1925 Amlodipine Besylate 5 MG DAILY 04/28 1000 AC 04/30 PO 0858 Ampicillin Sodium/ 1,500 MG Q6H 04/28 1100 AC 04/30 Sulbactam Sodium IV 0414 Sodium Chloride 100 ML Cholecalciferol 1,000 IU DAILY 04/28 1000 AC 04/30 PO 0858 Insulin Aspart 0 TIDAC / 1200 AC SC Lactobacillus 1 CAP DAILY 04/28 1000 AC 04/30 Acidophilus PO 0858 Levetiracetam 500 MG BID 04/28 2300 AC 04/30 Sodium Chloride 100 ML IV 0857 Lorazepam 1 MG ONCE ONE 04/29 1530 DC / IV 04/29 1531 1520 Lorazepam 0 Q1P PRN / 1830 AC 04/30 IV 0731 Magnesium Sulfate 1 GM ONCE ONE 04/29 0700 DC 04/29 Dextrose/Water 100 ML IV 04/29 1059 0802 Metoprolol Tartrate 5 MG Q6H / 1400 DC 02 IV 1957 Metoprolol Tartrate 100 MG BID / 1000 AC 04/30 PO 0858 Multivitamins 1 TAB DAILY 04/28 1000 AC 04/30 Therapeutic PO 0858 Ondansetron HCl 4 MG Q6 / 1800 AC 04/29 IV 1658 Oxycodone HCl 10 MG Q6P PRN / 0015 AC 04/29 PO 1322 Pantoprazole Sodium 40 MG DAILY / 1000 AC 04/30 IV 0857 Potassium Chloride 20 MEQ Q16H 04/29 1145 AC 02 Dextrose/Sodium 1,000 ML IV 0412 Chloride Potassium Chloride 20 MEQ Q6H 04/28 1030 DC 04/29 Dextrose/Sodium 1,000 ML IV 0956 Chloride Potassium Phosphate 15 mMol ONE ONE 04/29 0700 DC 04/29 Sodium Chloride 250 ML IV 04/29 1103 0802 Prednisone 5 MG DAILY 04/28 1000 AC 04/30 PO 0858 Trimethobenzamide HCl 200 MG TID PRN 04/29 0029 AC IM Vital Signs & I&O Last 24 Hrs of Vitals and I&O: Vital Signs Date Time Temp Pulse Resp B/P Pulse O2 O2 Flow FiO2 Ox Delivery Rate 04/30 0911 100.1 103 22 132/60 99 Room Air 04/30 0600 99.7 90 18 134/85 04/30 0400 99.7 97 18 123/92 04/30 0200 99.6 98 16 112/77 02 0000 99.5 95 16 114/70 02/ 0000 99.5 95 16 114/70 95 Room Air 04/29 2212 105 119/80 04/29 2200 101.2 108 20 119/80 04/29 2153 101.5 04/29 1999 102.0 116 24 140/60 04/29 2000 97 Nasal 2.0L Cannula 04/29 1957 115 140/80 04/29 1925 99.4 04/29 1800 112 20 134/87 04/29 1700 98.7 109 18 121/80 04 1600 Nasal 2.0L Cannula 04/29 1600 98.7 105 22 124/80 02 1600 98.7 105 22 124/80 99 Nasal 2.0L Cannula 04/29 1350 119 / 1200 98 Room Air Intake & Output 04/30 1600 04/30 0800 02 0000 Intake Total 580 1030 Output Total 670 790 Balance -90 240 Intake, IV 580 880 Intake, Oral 150 Output, Urine 670 790 Impression/Plan Impression/Plan Impression/Plan: IMPRESSION this is a 56-year-old lady with the previous history of a known seizure disorder, kidney transplant in 2009 due to hypertension-induced renal failure on significant immunosuppressive therapy, hypertension, GERD, dyslipidemia, type 2 diabetes, chronic diastolic heart failure, previous recurrent pyelonephritis, Alcohol use, now comes in with * Recent alcohol intake with altered mental status with high fever which is slowly improving * Resolved Sig metabolic acidosis with rapid improvement - probably related to alcohol withdrawal seizures as sig sepsis seems less likely * Significant fever in an immunosuppressed patient with chest x-ray highly suggestive of an aspiration pneumonia. Other intra-abdominal pathology seems less likely. Unlikely meningitis as she has improved * Status post renal transplant hence immunosuppressed. * Diabetes. * Previous history of seizure. Neurology on board. NO active evidence of meningitis * Chronic pain medication use. Watch out for any withdrawal. * Electrolyte abnormality with hypokalemia upon admission with hypernatremia which is improved. * Significant lactic acidosis which seems to have now resolved, probably related to low flow state and seizure disorder. * Low hemoglobin, watch for any GI bleed, but this probably from hemodilution RECOMMENDATION * Discontinue IV fluids increase by mouth intake. Give one dose of Lasix 10 mg * Watch for seizures. * Continue Keppra. * Continue antibiotics and please call infectious disease consult as patient is immunosuppressed on multiple medications, now with persistent fever with what looks like an aspiration pneumonitis. * Watch hemoglobin and hematocrit, check all stools for heme * Repeat chest x-ray * Continue immunosuppressive therapy for renal transplant, please start this today confirmed with the pharmacy the doses of drugs she was taking and start today Patient is critically ill. Total time spent 45 minutes
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
--- NOTE | 2016-04-30 11:40 | NUR ---
PT WENT INTO [facility] AND RETURNED TO [facility] IN 90'S ON OWN. PT ALERT AND ORIENTED X 1, CONFUSED AT TIMES. PT ON CIWA. NOTIFIED, IN ROOM WITH PT. EKG, TROPONINS ORDERED, MAG INFUSING NOW, NO COMPLAINTS FROM PT. WILL CONT TO MONITOR
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
--- NOTE | 2016-04-30 17:09 | Event Note ---
Event Note Event Note: Tacrolimus was last filled August 2014 at [facility]. No mail orders seen. Spoke with boyfriend he says pt gets her Tacrolimus through mail order and that she continues to take it every day. Per boyfriend dose is 2.5 mg in AM and 3.0 mg at night. I have communicated dosage change to [place] pharmacist and medication has been restarted.
--- NOTE | 2016-04-30 18:09 | RADIOLOGY REPORT ---
EXAMINATION: XR PORTABLE CHEST CLINICAL INFORMATION: Pneumonia COMPARISON: 04/28/2016 chest x-ray TECHNIQUE: Portable AP view of the chest was obtained. FINDINGS: Hypoventilatory exam. The cardiomediastinal silhouette is within normal limits considering the AP projection and shallow inspiratory effort in this exam. The left lung is clear. The right mid lung airspace disease again noted, although less conspicuous than the comparison exam. No other pulmonary opacities appreciated. No pleural effusions or pneumothorax. IMPRESSION: Right midlung pulmonary opacity, likely represents pneumonia. It is less conspicuous on today's exam, can partly be technical.
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
[2016-05-01] VITALS (9 sets, daily range): BP systolic 113–140; BP diastolic 70–90
--- NOTE | 2016-05-01 02:05 | NUR ---
0000 PATIENT RECEIVED ALERT AND ORIENTED X3 BUT SPEECH RAMBLING, WHEN QUESTIONED SHE REPORTS VISUAL HALLUCINATIONS, MOVES ALL 4 EXTREMITIES WITH EQUAL STRENGTH, NO LIMB DRIFT, SPEACH CLEAR, ABLE TO FOLLOW COMMANDS EASILY, SKIN WARM AND DRY, TEMPERATURE 99.2, BREATHE SOUNDS CLEAR BILATERALLY, 02 SAT 100% ON RA, ABDOMEN SOFT, + BS, VOIDING GOOD AMTS WITHOUT DIFFICULTY, SETTLED FOR SLEEP, CALL LIGHT WITHIN REACH
--- NOTE | 2016-05-01 03:31 | NUR ---
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
[2016-05-01 04:51] LABS: ABSOLUTE BASOPHIL COUNT 0 /CUMM (0.0-0.2); ABSOLUTE EOSINOPHIL COUNT 0.3 /CUMM (0.0-0.7); ABSOLUTE LYMPH COUNT 0.7 /CUMM (1.2-3.4); ABSOLUTE MONOCYTE COUNT 0.5 /CUMM (0.10-0.60); BASOPHIL % 0.4 % (0.0-2.0); EOSINOPHIL % 3.5 % (0-5); GRANULOCYTE % 81.6 % (42.2-75.2); HEMATOCRIT 31.7 % (37-47); MEAN CORPUSCULAR HGB 31.5 PG (27.0-31.0); MEAN CORPUSCULAR HGB CONC 33.1 G/DL (33.0-37.0); MEAN PLATELET VOLUME 9.1 FL (7.4-10.4); PLATELET COUNT 111 /CUMM (130-400); RBC DISTRIBUTION WIDTH 15.7 % (11.5-14.5); RED BLOOD CELL CT 3.33 /CUMM (4.20-5.40); WHITE BLOOD CELL COUNT 8.5 /CUMM (4.8-10.8)
--- NOTE | 2016-05-01 06:30 | NUR ---
PATIENT MUCH MORE COOPERATIVE AND CALMER WITH 1:1 SITTER IN ROOM, SPEECH STILL RAMBLING AT TIMES BUT NO FURTHER HALLUCINATIONS AND REMAINS ORIENTED X3, SLEEPING IN NAPS, AWAITING AM MD ROUNDS
--- NOTE | 2016-05-01 08:41 | NUR ---
0650 PATIENT SUDDENLY BOLTED FROM ROOM- RUNNING AND SCREAMING THROUGH WAITING ROOM WITH 1:1 SITTER IN PURSUIT- ORDER #7 CALLED, JARED BORDEN AND RIVKA AT PATIENT'S SIDE, UNABLE TO CALM PATIENT-CARRIED BACK TO BED AND CONTINUES TO KICK, PUNCH AND SCREAM- PLACED IN HARD 4 PT RESTRAINTS 0700 2 MG ATIVAN GIVEN IV ORDERED, PATIENT ABLE TO RECALL SURROUNDINGS, HOSPITAL PERSONAL AND EVENTS OF LAST FEW DAYS BUT INTEMITTENTLY CONTINUES TO SCREAM AND FIGHT RESTRAINTS 0730 HOUSE STAFF AT BEDSIDE
--- NOTE | 2016-05-01 10:32 | PN- Infect Dx ---
Subjective Subjective: MAXIMUM TEMPERATURE 100.4. She has been agitated with apparent hallucinations and delusions. Objective Last 24 Hrs of Vital Signs/I&O Vital Signs Date Time Temp Pulse Resp B/P Pulse O2 O2 Flow FiO2 Ox Delivery Rate 05/01 925 110 145/83 05/01 925 110 145/83 05/01 07 108 22 131/82 05/01 0600 99.1 106 16 115/71 05/01 0400 100.4 100 24 120/70 05/01 0400 97 Room Air 05/01 0200 102 22 118/78 05/01 0000 99.2 90 2 134/88 02/ 0000 100 Room Air 05/01 0000 99.2 90 22 134/88 100 Room Air 04/30 2200 93 30 128/82 04/30 2136 98.9 100 24 126/83 04/30 1999 98.9 102 28 132/90 04/30 1999 98 Room Air 04/30 1907 98.7 04/30 1659 100.3 04/30 1600 100.3 100 29 110/70 04/30 1600 100.3 100 29 110/70 100 Room Air 04/30 1156 99 Room Air Intake & Output 05/01 1600 /06 0800 / 0000 Intake Total 200 1060 Output Total 875 Balance 200 185 Intake, IV 540 Intake, Oral 200 520 Number 1 Bowel Movements Output, Urine 875 Physical Exam Other Physical Findings: She is agitated, lashing out verbally, but intermittently appropriate Lungs crackles at the right base Heart regular rhythm with no murmur Extremities no cyanosis, clubbing or edema Results Last 24 Hours of Lab Results: Laboratory Tests 05/01 04/30 04/30 0440 1545 1337 Chemistry Sodium (137 - 145 mmol/L) 142 141 Cancelled Potassium (3.5 - 5.1 mmol/L) 3.7 4.8 Cancelled Chloride (98 - 107 mmol/L) 117 H 116 H Cancelled Carbon Dioxide (22 - 30 mmol/L) 18 L 15 L Cancelled Anion Gap (5 - 16) 7 10 Cancelled BUN (7 - 17 mg/dL) 7 5 L Cancelled Creatinine (0.5 - 1.0 mg/dL) 0.9 0.8 Cancelled Estimated GFR (>60 ml/min) > 60 > 60 Glucose (65 - 99 mg/dL) 122 H 137 H Cancelled Calcium (8.4 - 10.2 mg/dL) 8.7 7.8 L Cancelled Phosphorus (2.5 - 4.5 mg/dL) 2.2 L 2.5 Cancelled Magnesium (1.6 - 2.3 mg/dL) 1.7 2.2 Cancelled Total Bilirubin (0.2 - 1.3 mg/dL) 0.7 0.8 Cancelled AST (14 - 36 U/L) 35 49 H Cancelled ALT (9 - 52 U/L) 57 H 70 H Cancelled Albumin (3.5 - 5.0 g/dL) 3.1 L 2.9 L Cancelled Hematology CBC w Diff NO MAN DIFF REQ WBC (4.8 - 10.8 /CUMM) 8.5 RBC (4.20 - 5.40 /CUMM) 3.33 L Hgb (12.0 - 16.0 G/DL) 10.5 L Hct (37 - 47 %) 31.7 L MCV (81.0 - 99.0 FL) 95.0 MCH (27.0 - 31.0 PG) 31.5 H RDW (11.5 - 14.5 %) 15.7 H Plt Count (130 - 400 /CUMM) 111 L MPV (7.4 - 10.4 FL) 9.1 Gran % (42.2 - 75.2 %) 81.6 H Lymphocytes % (20.5 - 51.1 %) 8.6 L Monocytes % (1.7 - 9.3 %) 5.9 Eosinophils % (0 - 5 %) 3.5 Basophils % (0.0 - 2.0 %) 0.4 Absolute Granulocytes (1.4 - 6.5 /CUMM) 7.0 H Absolute Lymphocytes (1.2 - 3.4 /CUMM) 0.7 L Absolute Monocytes (0.10 - 0.60 /CUMM) 0.5 Absolute Eosinophils (0.0 - 0.7 /CUMM) 0.3 Absolute Basophils (0.0 - 0.2 /CUMM) 0 PUBS MCHC (33.0 - 37.0 G/DL) 33.1 02/05 1130 Chemistry Sodium (137 - 145 mmol/L) 145 Potassium (3.5 - 5.1 mmol/L) 4.3 Chloride (98 - 107 mmol/L) 116 H Carbon Dioxide (22 - 30 mmol/L) 19 L Anion Gap (5 - 16) 9 BUN (7 - 17 mg/dL) 6 L Creatinine (0.5 - 1.0 mg/dL) 0.8 Estimated GFR (>60 ml/min) > 60 Glucose (65 - 99 mg/dL) 122 H Calcium (8.4 - 10.2 mg/dL) 8.2 L Phosphorus (2.5 - 4.5 mg/dL) 1.6 L Magnesium (1.6 - 2.3 mg/dL) 1.7 Total Bilirubin (0.2 - 1.3 mg/dL) 0.8 AST (14 - 36 U/L) 56 H ALT (9 - 52 U/L) 71 H Troponin I (< 0.11 ng/ml) < 0.01 Albumin (3.5 - 5.0 g/dL) 3.1 L Last 24 Hours of Jose Carlos Results: Blood cultures April 27 negative Blood cultures April 28 negative Recent Imaging Studies: Chest x-ray April 30, personally reviewed, reveals a decreased right midlung opacity Assessment/Plan Impression: Improved overall with temperatures and white blood cell count decreasing on Unasyn Day 3 of treatment for presumed aspiration pneumonia following alcohol toxicity. Her mental status, however, has deteriorated with apparent hallucinations, possibly secondary to alcohol withdrawal or medications. Suggestion: 1. Further management of her agitation/altered behavior per the ICU team 2. Continue Unasyn
--- NOTE | 2016-05-01 11:16 | PN- CRCU ---
Subjective HPI/Critical Care Issues: pt seen and examined delirious this am temp 100.4 verbally aggressive this am no obvious distress otherwise Objective Current Medications: Current Medications Sig/Satish Start time Last Medication Dose Route Stop Time Status Admin Acetaminophen 1,000 MG .STK-MED ONE 04/30 1638 DC IV 04/30 1639 Acetaminophen 1,000 MG Q6P PRN 04/28 1430 AC 04/30 N/A 1 UNIT IV 1659 Amlodipine Besylate 5 MG DAILY 04/28 1000 AC 05/01 PO 0926 Ampicillin Sodium/ 1,500 MG Q6H 04/28 1100 AC 05/01 Sulbactam Sodium IV 0432 Sodium Chloride 100 ML Chlordiazepoxide HCl 75 MG Q4 05/01 1015 UNVr 05/01 PO 1006 Cholecalciferol 1,000 IU DAILY 04/28 1000 AC 05/01 PO 0925 Furosemide 10 MG ONCE ONE 04/30 1730 DC 04/30 IV 04/30 1731 1907 Haloperidol 0.5 MG ONCE ONE 05/01 0915 DC IM 05/01 0916 Insulin Aspart 0 TIDAC 04/28 1200 AC SC Lactobacillus 1 CAP DAILY 04/28 1000 AC 05/01 Acidophilus PO 0926 Levetiracetam 500 MG BID 05/01 1015 AC PO Levetiracetam 500 MG BID 04/28 2300 DC 04/30 Sodium Chloride 100 ML IV 2137 Lorazepam 2 MG ONE ONE 05/01 0700 DC 05/01 IV 05/01 0701 0700 Lorazepam 0 Q1P PRN 04/28 1830 DC 05/01 IV 0248 Magnesium Oxide 400 MG ONE ONE 05/01 0915 CAN PO 05/01 0916 Magnesium Sulfate 1 GM ONCE ONE 05/01 1015 AC 05/01 Dextrose/Water 100 ML IV 05/01 1414 1010 Magnesium Sulfate 1 GM ONCE ONE 04/30 1130 DC 04/30 Dextrose/Water 100 ML IV 04/30 1529 1140 Metoprolol Tartrate 100 MG BID 04/28 1000 AC 05/01 PO 0926 Morphine Sulfate 2 MG Q4P PRN 04/30 1345 AC 05/01 IV 0154 Multivitamins 1 TAB DAILY 04/28 1000 AC 05/01 Therapeutic PO 0926 Omeprazole 40 MG DAILY AC 05/01 0700 AC 05/01 PO 0927 Ondansetron HCl 4 MG Q6 04/28 1800 DC 04/29 IV 1658 Oxycodone HCl 10 MG Q6P PRN 04/28 0015 DC 04/30 PO 1020 Pantoprazole Sodium 40 MG DAILY 04/28 1000 DC 04/30 IV 0857 Patient Medication 1 UNIT ONE NR 05/01 0700 Teaching ED 05/01 1300 Patient Medication 1 UNIT ONE NR 04/30 1945 CA Teaching ED 04/30 2000 Potassium Chloride 40 MEQ ONCE ONE 05/01 0915 DC 05/01 PO 05/01 0916 0927 Potassium Chloride 20 MEQ Q16H 04/29 1145 DC 04/30 Dextrose/Sodium 1,000 ML IV 0412 Chloride Potassium Phosphate 15 mMol ONE ONE 04/30 1000 DC 04/30 Sodium Chloride 250 ML IV 04/30 1403 1114 Prednisone 5 MG DAILY 04/28 1000 AC 04/30 PO 0858 Tacrolimus 2 MG DAILY 05/01 1000 DC PO Tacrolimus 2.5 MG DAILY 05/01 1000 AC 05/01 PO 0928 Tacrolimus 3 MG QPM 04/30 2200 AC 04/30 PO 2136 Trimethobenzamide HCl 200 MG TID PRN 04/29 0029 IM Vital Signs & I&O Last 24 Hrs of Vitals and I&O: Vital Signs Date Time Temp Pulse Resp B/P Pulse O2 O2 Flow FiO2 Ox Delivery Rate 05/01 0926 110 145/83 05/01 0926 110 145/83 05/01 0700 108 22 131/82 05/01 0600 99.1 106 16 115/71 / 0400 100.4 100 24 120/70 / 0400 97 Room Air / 0200 102 22 118/78 / 0000 99.2 90 2 134/88 05/01 0000 100 Room Air / 0000 99.2 90 22 134/88 100 Room Air / 2200 93 30 128/82 02/ 2136 98.9 100 24 126/83 04/30 1999 98.9 102 28 132/90 04/30 1999 98 Room Air 04/30 1907 98.7 04/30 1659 100.3 02/05 1600 100.3 100 29 110/70 02/05 1600 100.3 100 29 110/70 100 Room Air 02/ 1156 99 Room Air Intake & Output 05/01 1600 /06 0800 05/01 0000 Intake Total 200 1060 Output Total 875 Balance 200 185 Intake, IV 540 Intake, Oral 200 520 Number 1 Bowel Movements Output, Urine 875 Exam Other Physical Findings: gen awake heen tncat cvs s1, s2 lungs rare rhonchi abd soft bs+ ext without edema Results Last 24 Hrs of Lab Results: Laboratory Tests 05/01/16 0440: Anion Gap 7, Estimated GFR > 60, Glucose 122 H, Calcium 8.7, Phosphorus 2.2 L, Magnesium 1.7, Total Bilirubin 0.7, AST 35, ALT 57 H, Albumin 3.1 L, CBC w Diff NO MAN DIFF REQ, RBC 3.33 L, MCV 95.0, MCH 31.5 H, RDW 15.7 H, MPV 9.1, Gran % 81.6 H, Lymphocytes % 8.6 L, Monocytes % 5.9, Eosinophils % 3.5, Basophils % 0.4, Absolute Granulocytes 7.0 H, Absolute Lymphocytes 0.7 L, Absolute Monocytes 0.5, Absolute Eosinophils 0.3, Absolute Basophils 0, PUBS MCHC 33.1 04/30/16 1545: Anion Gap 10, Estimated GFR > 60, Glucose 137 H, Calcium 7.8 L, Phosphorus 2.5 , Magnesium 2.2, Total Bilirubin 0.8, AST 49 H, ALT 70 H, Albumin 2.9 L 04/30/16 1337: Sodium Cancelled, Potassium Cancelled, Chloride Cancelled, Carbon Dioxide Cancelled, Anion Gap Cancelled, BUN Cancelled, Creatinine Cancelled, Glucose Cancelled, Calcium Cancelled, Phosphorus Cancelled, Magnesium Cancelled, Total Bilirubin Cancelled, AST Cancelled, ALT Cancelled, Albumin Cancelled 04/30/16 1130: Anion Gap 9, Estimated GFR > 60, Glucose 122 H, Calcium 8.2 L, Phosphorus 1.6 L, Magnesium 1.7, Total Bilirubin 0.8, AST 56 H, ALT 71 H, Troponin I < 0.01, Albumin 3.1 L Impression/Plan Impression/Plan Impression/Plan: Impression 56 year old woman -hx renal transplant -etoh ingestion -aspiration pna -delirium, ?withdrawal Plan -unasyn continue -cx if possible -change to librium 75mg q4 with holding parameters -ciwa protocol -mvi, folate, thiamine -psychiatry consultaiton -dvt prophylaxis at all times -id appreciated TTS 35min
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
--- NOTE | 2016-05-01 15:01 | PN- Nephrology ---
Assessment/Plan Assessment: 1. Stable kidney function - status post living related kidney transplant 2009 2. Encephalopathy secondary to acute alcoholism - resolved. 3. Agitation/paranoid ideation - ? Drug reaction versus withdrawal symptoms 4. Possible aspiration pneumonia Suggestion: 1. Agree with benzodiazepine taper - if psych approves 2. Continue her immunosuppressive medications and maintain adequate hydration 3. Antibiotic therapy per ID 4. Monitor chemistries daily 5. Psychiatry following Subjective Subjective: Patient had become very agitated with some paranoid ideation. Apparently, this may have been related, at least in part, to a reaction to lorazepam. Temperature 99.1, Tmax 100.4. On antibiotic therapy for possible aspiration pneumonia. Tacrolimus level 6.9 on 04/27. Renal function remains stable and essentially within normal limits. Objective Vital Signs and I&Os Vital Signs Date Time Temp Pulse Resp B/P Pulse O2 O2 Flow FiO2 Ox Delivery Rate 05/01 09 110 145/83 05/01 0926 110 145/83 05/01 0700 108 22 131/82 / 0600 99.1 106 16 115/71 05/01 0400 100.4 100 24 120/70 / 0400 97 Room Air 02/06 0200 102 22 118/78 02/06 0000 99.2 90 2 134/88 02/06 0000 100 Room Air 02/06 0000 99.2 90 22 134/88 100 Room Air 02/05 2200 93 30 128/82 02/05 2136 98.9 100 24 126/83 02/05 2000 98.9 102 28 132/90 02/05 1999 98 Room Air 02/ 1907 98.7 02/ 1659 100.3 02/05 1600 100.3 100 29 110/70 02/05 1600 100.3 100 29 110/70 100 Room Air Intake & Output / 1600 / 0400 / 1600 / 0400 / 1600 / 0400 Intake Total 200 1060 1938 1030 2073 1374 Output Total 875 2670 790 1850 1150 Balance 200 185 -732 240 223 224 Intake, IV 540 6254 861 7034 1374 Intake, Oral 200 520 350 150 100 0 Number 1 1 1 1 Bowel Movements Output, Urine 875 2670 790 1850 1150 Physical Exam: General: Well-developed -[place] female, easily agitated and generally unhappy with her surroundings and care Skin: No rash or lesions HEENT: Conjunctivae pink, sclerae anicteric, mucous membranes dry Neck: Without masses or thyromegaly, no supraclavicular or cervical adenopathy Chest: Clear P&A Heart: Regular rate and rhythm without S3 or rub Abdomen: Soft and nontender without palpable masses or organomegaly Extremities: Without cyanosis or edema; the renal allograft is nontender Neuro: No focal findings, no asterixis or myoclonus Current Medications: Current Medications Sig/Satish Start time Last Medication Dose Route Stop Time Status Admin Acetaminophen 1,000 MG .STK-MED ONE 04/30 1638 DC IV 04/30 1639 Acetaminophen 1,000 MG Q6P PRN 04/28 1430 AC 04/30 N/A 1 UNIT IV 1659 Amlodipine Besylate 5 MG DAILY 04/28 1000 AC 05/01 PO 0926 Ampicillin Sodium/ 1,500 MG Q6H 04/28 1100 AC 05/01 Sulbactam Sodium IV 0432 Sodium Chloride 100 ML Chlordiazepoxide HCl 75 MG Q6 05/01 1200 AC PO Chlordiazepoxide HCl 75 MG Q4 05/01 1015 DC 05/01 PO 1006 Cholecalciferol 1,000 IU DAILY 04/28 1000 AC 05/01 PO 0925 Folic Acid 1 MG DAILY 05/01 1235 AC PO Furosemide 10 MG ONCE ONE 04/30 1730 DC 04/30 IV 04/30 1731 1907 Haloperidol 0.5 MG ONCE ONE 05/01 0915 DC IM 05/01 0916 Insulin Aspart 0 TIDAC 04/28 1200 AC SC Lactobacillus 1 CAP DAILY 04/28 1000 AC 05/01 Acidophilus PO 0926 Levetiracetam 500 MG BID 05/01 1015 AC 05/01 PO 1154 Levetiracetam 500 MG BID 04/28 2300 DC 04/30 Sodium Chloride 100 ML IV 2137 Lorazepam 2 MG ONE ONE 05/01 0700 DC 05/01 IV 05/01 0701 0700 Lorazepam 0 Q1P PRN 04/28 1830 DC 05/01 IV 0248 Magnesium Oxide 400 MG ONE ONE 05/01 0915 CAN PO 05/01 0916 Magnesium Sulfate 1 GM ONCE ONE 05/01 1015 DC 05/01 Dextrose/Water 100 ML IV 05/01 1414 1010 Magnesium Sulfate 1 GM ONCE ONE 04/30 1130 DC 04/30 Dextrose/Water 100 ML IV 04/30 1529 1140 Metoprolol Tartrate 100 MG BID 04/28 1000 AC 05/01 PO 0926 Morphine Sulfate 2 MG Q4P PRN 04/30 1345 AC 05/01 IV 0154 Multivitamins 1 TAB DAILY 04/28 1000 AC 05/01 Therapeutic PO 0926 Omeprazole 40 MG DAILY AC 05/01 0700 AC 05/01 PO 0927 Pantoprazole Sodium 40 MG DAILY 04/28 1000 DC 04/30 IV 0857 Patient Medication 1 UNIT ONE NR 05/[address] Teaching ED 05/01 1300 Patient Medication 1 UNIT ONE NR 04/[address] Teaching ED 04/30 2000 Potassium Chloride 40 MEQ ONCE ONE 05/01 0915 DC 05/01 PO 05/01 0916 0927 Potassium Chloride 20 MEQ Q16H 04/29 1145 DC 04/30 Dextrose/Sodium 1,000 ML IV 0412 Chloride Prednisone 5 MG DAILY 04/28 1000 AC 05/01 PO 1153 Tacrolimus 2 MG DAILY 05/01 1000 DC PO Tacrolimus 2.5 MG DAILY 05/01 1000 AC 05/01 PO 0928 Tacrolimus 3 MG QPM 04/30 2200 AC 04/30 PO 2136 Trimethobenzamide HCl 200 MG TID PRN 04/29 0029 AC IM Results Pertinent Lab Results: Laboratory Tests 05/01 04/30 04/30 0440 1545 1337 Chemistry Sodium (137 - 145 mmol/L) 142 141 Cancelled Potassium (3.5 - 5.1 mmol/L) 3.7 4.8 Cancelled Chloride (98 - 107 mmol/L) 117 H 116 H Cancelled Carbon Dioxide (22 - 30 mmol/L) 18 L 15 L Cancelled Anion Gap (5 - 16) 7 10 Cancelled BUN (7 - 17 mg/dL) 7 5 L Cancelled Creatinine (0.5 - 1.0 mg/dL) 0.9 0.8 Cancelled Estimated GFR (>60 ml/min) > 60 > 60 Glucose (65 - 99 mg/dL) 122 H 137 H Cancelled Calcium (8.4 - 10.2 mg/dL) 8.7 7.8 L Cancelled Phosphorus (2.5 - 4.5 mg/dL) 2.2 L 2.5 Cancelled Magnesium (1.6 - 2.3 mg/dL) 1.7 2.2 Cancelled Total Bilirubin (0.2 - 1.3 mg/dL) 0.7 0.8 Cancelled AST (14 - 36 U/L) 35 49 H Cancelled ALT (9 - 52 U/L) 57 H 70 H Cancelled Albumin (3.5 - 5.0 g/dL) 3.1 L 2.9 L Cancelled Hematology CBC w Diff NO MAN DIFF REQ WBC (4.8 - 10.8 /CUMM) 8.5 RBC (4.20 - 5.40 /CUMM) 3.33 L Hgb (12.0 - 16.0 G/DL) 10.5 L Hct (37 - 47 %) 31.7 L MCV (81.0 - 99.0 FL) 95.0 MCH (27.0 - 31.0 PG) 31.5 H RDW (11.5 - 14.5 %) 15.7 H Plt Count (130 - 400 /CUMM) 111 L MPV (7.4 - 10.4 FL) 9.1 Gran % (42.2 - 75.2 %) 81.6 H Lymphocytes % (20.5 - 51.1 %) 8.6 L Monocytes % (1.7 - 9.3 %) 5.9 Eosinophils % (0 - 5 %) 3.5 Basophils % (0.0 - 2.0 %) 0.4 Absolute Granulocytes (1.4 - 6.5 /CUMM) 7.0 H Absolute Lymphocytes (1.2 - 3.4 /CUMM) 0.7 L Absolute Monocytes (0.10 - 0.60 /CUMM) 0.5 Absolute Eosinophils (0.0 - 0.7 /CUMM) 0.3 Absolute Basophils (0.0 - 0.2 /CUMM) 0 PUBS MCHC (33.0 - 37.0 G/DL) 33.1 05 02/05 1130 0400 Chemistry Sodium (137 - 145 mmol/L) 145 142 Potassium (3.5 - 5.1 mmol/L) 4.3 4.5 Chloride (98 - 107 mmol/L) 116 H 113 H Carbon Dioxide (22 - 30 mmol/L) 19 L 22 Anion Gap (5 - 16) 9 7 BUN (7 - 17 mg/dL) 6 L 6 L Creatinine (0.5 - 1.0 mg/dL) 0.8 0.8 Estimated GFR (>60 ml/min) > 60 > 60 Glucose (65 - 99 mg/dL) 122 H 98 Calcium (8.4 - 10.2 mg/dL) 8.2 L 7.6 L Phosphorus (2.5 - 4.5 mg/dL) 1.6 L 1.6 L Magnesium (1.6 - 2.3 mg/dL) 1.7 1.8 Total Bilirubin (0.2 - 1.3 mg/dL) 0.8 0.7 AST (14 - 36 U/L) 56 H 53 H ALT (9 - 52 U/L) 71 H 70 H Troponin I (< 0.11 ng/ml) < 0.01 Albumin (3.5 - 5.0 g/dL) 3.1 L 2.9 L Hematology CBC w Diff NO MAN DIFF REQ WBC (4.8 - 10.8 /CUMM) 11.4 H RBC (4.20 - 5.40 /CUMM) 3.37 L Hgb (12.0 - 16.0 G/DL) 10.7 L Hct (37 - 47 %) 32.3 L MCV (81.0 - 99.0 FL) 95.8 MCH (27.0 - 31.0 PG) 31.7 H RDW (11.5 - 14.5 %) 16.1 H Plt Count (130 - 400 /CUMM) 95 L MPV (7.4 - 10.4 FL) 9.4 Gran % (42.2 - 75.2 %) 85.4 H Lymphocytes % (20.5 - 51.1 %) 8.8 L Monocytes % (1.7 - 9.3 %) 4.1 Eosinophils % (0 - 5 %) 1.2 Basophils % (0.0 - 2.0 %) 0.5 Absolute Granulocytes (1.4 - 6.5 /CUMM) 9.7 H Absolute Lymphocytes (1.2 - 3.4 /CUMM) 1.0 L Absolute Monocytes (0.10 - 0.60 /CUMM) 0.5 Absolute Eosinophils (0.0 - 0.7 /CUMM) 0.1 Absolute Basophils (0.0 - 0.2 /CUMM) 0.1 PUBS MCHC (33.0 - 37.0 G/DL) 33.1 02/04 02/ 0850 0345 Chemistry Lactic Acid (0.7 - 2.1 mmol/L) 2.6 H Hematology CBC w Diff MAN DIFF ORDERED WBC (4.8 - 10.8 /CUMM) 14.1 H RBC (4.20 - 5.40 /CUMM) 3.43 L Hgb (12.0 - 16.0 G/DL) 10.7 L Hct (37 - 47 %) 32.4 L MCV (81.0 - 99.0 FL) 94.7 MCH (27.0 - 31.0 PG) 31.2 H RDW (11.5 - 14.5 %) 16.1 H Plt Count (130 - 400 /CUMM) 105 L MPV (7.4 - 10.4 FL) 9.1 Gran % (42.2 - 75.2 %) 88.7 H Lymphocytes % (20.5 - 51.1 %) 6.7 L Monocytes % (1.7 - 9.3 %) 4.1 Eosinophils % (0 - 5 %) 0.2 Basophils % (0.0 - 2.0 %) 0.3 Absolute Granulocytes (1.4 - 6.5 /CUMM) 12.5 H Absolute Lymphocytes (1.2 - 3.4 /CUMM) 0.9 L Absolute Monocytes (0.10 - 0.60 /CUMM) 0.6 Absolute Eosinophils (0.0 - 0.7 /CUMM) 0 Absolute Basophils (0.0 - 0.2 /CUMM) 0 Platelet Estimate (ADEQUATE) DECREASED Polychromasia 1+ Basophilic Stippling 1+ Anisocytosis 1+ PUBS MCHC (33.0 - 37.0 G/DL) 32.9 L 04/29 04/28 0345 1520 Chemistry Sodium (137 - 145 mmol/L) 143 144 Potassium (3.5 - 5.1 mmol/L) 3.6 3.7 Chloride (98 - 107 mmol/L) 112 H 113 H Carbon Dioxide (22 - 30 mmol/L) 22 19 L Anion Gap (5 - 16) 9 12 BUN (7 - 17 mg/dL) 9 14 Creatinine (0.5 - 1.0 mg/dL) 0.8 0.8 Estimated GFR (>60 ml/min) > 60 > 60 Glucose (65 - 99 mg/dL) 110 H 138 H Lactic Acid (0.7 - 2.1 mmol/L) 5.3 H Calcium (8.4 - 10.2 mg/dL) 7.2 L 7.7 L Phosphorus (2.5 - 4.5 mg/dL) 1.2 L 2.7 Magnesium (1.6 - 2.3 mg/dL) 1.6 1.7 Total Bilirubin (0.2 - 1.3 mg/dL) 0.5 0.4 AST (14 - 36 U/L) 63 H 91 H ALT (9 - 52 U/L) 89 H 110 H Albumin (3.5 - 5.0 g/dL) 2.9 L 3.3 L Hematology CBC w Diff NO MAN DIFF REQ WBC (4.8 - 10.8 /CUMM) 15.0 H RBC (4.20 - 5.40 /CUMM) 3.56 L Hgb (12.0 - 16.0 G/DL) 11.2 L Hct (37 - 47 %) 33.5 L MCV (81.0 - 99.0 FL) 94.3 MCH (27.0 - 31.0 PG) 31.5 H RDW (11.5 - 14.5 %) 16.2 H Plt Count (130 - 400 /CUMM) 105 L MPV (7.4 - 10.4 FL) 9.2 Gran % (42.2 - 75.2 %) 89.2 H Lymphocytes % (20.5 - 51.1 %) 6.8 L Monocytes % (1.7 - 9.3 %) 3.6 Eosinophils % (0 - 5 %) 0.1 Basophils % (0.0 - 2.0 %) 0.3 Absolute Granulocytes (1.4 - 6.5 /CUMM) 13.4 H Absolute Lymphocytes (1.2 - 3.4 /CUMM) 1.0 L Absolute Monocytes (0.10 - 0.60 /CUMM) 0.5 Absolute Eosinophils (0.0 - 0.7 /CUMM) 0 Absolute Basophils (0.0 - 0.2 /CUMM) 0 PUBS MCHC (33.0 - 37.0 G/DL) 33.4 Toxicology Serum Alcohol (<10 MG/DL) < 10.0
[2016-05-02] VITALS (8 sets, daily range): BP systolic 102–132; BP diastolic 64–83
[2016-05-02 05:59] LABS: ABSOLUTE BASOPHIL COUNT 0 /CUMM (0.0-0.2); ABSOLUTE EOSINOPHIL COUNT 0.3 /CUMM (0.0-0.7); ABSOLUTE GRANULOCYTE CT 3.6 /CUMM (1.4-6.5); ABSOLUTE LYMPH COUNT 1.1 /CUMM (1.2-3.4); ABSOLUTE MONOCYTE COUNT 0.6 /CUMM (0.10-0.60); BASOPHIL % 0.6 % (0.0-2.0); EOSINOPHIL % 5.2 % (0-5); GRANULOCYTE % 64.6 % (42.2-75.2); HEMATOCRIT 33.8 % (37-47); MEAN CORPUSCULAR HGB 31.5 PG (27.0-31.0); MEAN CORPUSCULAR HGB CONC 32.8 G/DL (33.0-37.0); MEAN CORPUSCULAR VOLUME 96.1 FL (81.0-99.0); MEAN PLATELET VOLUME 8.4 FL (7.4-10.4); PLATELET COUNT 126 /CUMM (130-400); RBC DISTRIBUTION WIDTH 15.6 % (11.5-14.5); RED BLOOD CELL CT 3.51 /CUMM (4.20-5.40); WHITE BLOOD CELL COUNT 5.7 /CUMM (4.8-10.8)
--- NOTE | 2016-05-02 09:54 | PN- CRCU ---
Subjective HPI/Critical Care Issues: pt seen and examined feeling much better comfortable no cough, no dyspnea no n/v/d/c no cp Objective Current Medications: Current Medications Sig/Satish Start time Last Medication Dose Route Stop Time Status Admin Acetaminophen 1,000 MG Q6P PRN 04/28 1430 AC 04/30 N/A 1 UNIT IV 1659 Amlodipine Besylate 5 MG DAILY 04/28 1000 AC 05/02 PO 0855 Ampicillin Sodium/ 1,500 MG Q6H 04/28 1100 AC 05/02 Sulbactam Sodium IV 0545 Sodium Chloride 100 ML Chlordiazepoxide HCl 50 MG 0600,1800 05/04 0600 AC PO 05/05 0601 Chlordiazepoxide HCl 50 MG 0200,1000,1800 05/03 1800 AC PO 05/04 1001 Chlordiazepoxide HCl 50 MG Q6 05/02 0000 AC 05/02 PO 05/02 1801 0544 Chlordiazepoxide HCl 25 MG Q8P PRN 05/01 1815 AC 05/01 PO 2018 Chlordiazepoxide HCl 75 MG Q6 05/01 1200 DC 05/01 PO 1507 Chlordiazepoxide HCl 75 MG Q4 05/01 1015 DC 05/01 PO 1006 Cholecalciferol 1,000 IU DAILY 04/28 1000 AC 05/02 PO 0852 Folic Acid 1 MG DAILY 05/01 1235 AC 05/01 PO 1506 Insulin Aspart 0 TIDAC 04/28 1200 AC SC Lactobacillus 1 CAP DAILY 04/28 1000 AC 05/02 Acidophilus PO 0853 Levetiracetam 500 MG BID 05/01 1015 AC 05/02 PO 0850 Levetiracetam 500 MG BID 04/28 2300 DC 04/30 Sodium Chloride 100 ML IV 2137 Lorazepam 2 MG .STK-MED ONE 05/01 1546 DC IV 05/01 1547 Lorazepam 0 Q1P PRN 04/28 1830 DC 05/01 IV 0248 Magnesium Oxide 400 MG ONE ONE 05/01 0915 CAN PO 05/01 0916 Magnesium Sulfate 1 GM ONCE ONE 05/01 1015 DC 05/01 Dextrose/Water 100 ML IV 05/01 1414 1010 Metoprolol Tartrate 100 MG BID 04/28 1000 AC 05/01 PO 2357 Morphine Sulfate 2 MG Q4P PRN 04/30 1345 AC 05/02 IV 0641 Multivitamins 1 TAB DAILY 04/28 1000 AC 05/02 Therapeutic PO 0851 Omeprazole 40 MG DAILY AC 05/01 0700 AC 05/02 PO 0544 Patient Medication 1 UNIT ONE NR 05/01 0700 DC Teaching ED 05/01 1300 Prednisone 5 MG DAILY 04/28 1000 AC 05/01 PO 1153 Tacrolimus 2 MG DAILY 05/01 1000 DC PO Tacrolimus 2.5 MG DAILY 05/01 1000 AC 05/02 PO 0853 Tacrolimus 3 MG QPM 04/30 2200 AC 05/01 PO 2353 Trimethobenzamide HCl 200 MG TID PRN 04/29 0029 AC IM Vital Signs & I&O Last 24 Hrs of Vitals and I&O: Vital Signs Date Time Temp Pulse Resp B/P Pulse O2 O2 Flow FiO2 Ox Delivery Rate 05/02 0855 88 108/76 05/02 0800 86 22 05/02 0600 80 20 107/73 05/02 0400 97.1 84 20 132/68 05/02 0400 96 Room Air 05/02 0200 86 20 116/83 05/02 0000 98.2 90 24 128/70 05/02 0000 97 Room Air 05/02 0000 98.2 90 24 128/70 97 Room Air 05/01 2357 90 124/60 05/01 2200 16 16 113/78 05/01 2000 99.7 108 20 140/90 05/01 2000 95 Room Air 05/01 1600 99.6 98 20 120/80 97 Room Air Intake & Output / 1600 /07 0800 / 0000 Intake Total 400 360 880 Output Total 0 Balance 400 360 880 Intake, IV 260 Intake, Oral 400 100 880 Number 1 Bowel Movements Output, Urine 0 Exam Other Physical Findings: gen awake heen tncat cvs s1, s2 lungs rare rhonchi abd soft bs+ ext without edema Results Last 24 Hrs of Lab Results: Laboratory Tests 05/02/16 0535: Anion Gap 7, Estimated GFR > 60, Glucose 108 H, Calcium 9.0, Phosphorus 3.3, Magnesium 2.0, Total Bilirubin 0.8, AST 26, ALT 44, Albumin 3.1 L, CBC w Diff NO MAN DIFF REQ, RBC 3.51 L, MCV 96.1, MCH 31.5 H, RDW 15.6 H, MPV 8.4, Gran % 64.6, Lymphocytes % 18.6 L, Monocytes % 11.0 H, Eosinophils % 5.2 H, Basophils % 0.6, Absolute Granulocytes 3.6, Absolute Lymphocytes 1.1 L, Absolute Monocytes 0.6, Absolute Eosinophils 0.3, Absolute Basophils 0, PUBS MCHC 32.8 L Impression/Plan Impression/Plan Impression/Plan: Impression 56 year old woman -hx renal transplant -etoh ingestion -aspiration pna -delirium, ?withdrawal Plan -unasyn can be converted to Augmentin if okay with ID -librium taper as ordered -[facility] avera protocol -mvi, folate, thiamine -psychiatry consultation appreciated -dvt prophylaxis at all times TTS 35min DG GM
--- NOTE | 2016-05-02 09:58 | PN- Infect Dx ---
Subjective Subjective: MAXIMUM TEMPERATURE 100 without complaints. Objective Last 24 Hrs of Vital Signs/I&O Vital Signs Date Time Temp Pulse Resp B/P Pulse O2 O2 Flow FiO2 Ox Delivery Rate 05/02 854 88 108/76 05/02 799 86 22 05/02 0600 80 20 107/73 05/02 0400 97.1 84 20 132/68 05/02 0400 96 Room Air 05/02 0200 86 20 116/83 05/02 0000 98.2 90 24 128/70 05/02 0000 97 Room Air 05/02 0000 98.2 90 24 128/70 97 Room Air 05/01 2357 90 124/60 05/01 2200 16 16 113/78 05/01 1999 99.7 108 20 140/90 05/01 2000 95 Room Air 05/01 1600 99.6 98 20 120/80 97 Room Air Intake & Output 05/02 1600 05/02 0805/02 0000 Intake Total 400 360 880 Output Total 0 Balance 400 360 880 Intake, IV 260 Intake, Oral 400 100 880 Number 1 Bowel Movements Output, Urine 0 Physical Exam Other Physical Findings: She appears comfortable in no acute distress Lungs are clear Heart regular rhythm with no murmur Abdomen is soft, mildly tender on palpation diffusely, with no guarding or rebound, positive bowel sounds Extremities no cyanosis, clubbing or edema Results Last 24 Hours of Lab Results: Laboratory Tests 05/02 534 Chemistry Sodium (137 - 145 mmol/L) 142 Potassium (3.5 - 5.1 mmol/L) 3.8 Chloride (98 - 107 mmol/L) 113 H Carbon Dioxide (22 - 30 mmol/L) 22 Anion Gap (5 - 16) 7 BUN (7 - 17 mg/dL) 10 Creatinine (0.5 - 1.0 mg/dL) 0.9 Estimated GFR (>60 ml/min) > 60 Glucose (65 - 99 mg/dL) 108 H Calcium (8.4 - 10.2 mg/dL) 9.0 Phosphorus (2.5 - 4.5 mg/dL) 3.3 Magnesium (1.6 - 2.3 mg/dL) 2.0 Total Bilirubin (0.2 - 1.3 mg/dL) 0.8 AST (14 - 36 U/L) 26 ALT (9 - 52 U/L) 44 Albumin (3.5 - 5.0 g/dL) 3.1 L Hematology CBC w Diff NO MAN DIFF REQ WBC (4.8 - 10.8 /CUMM) 5.7 RBC (4.20 - 5.40 /CUMM) 3.51 L Hgb (12.0 - 16.0 G/DL) 11.1 L Hct (37 - 47 %) 33.8 L MCV (81.0 - 99.0 FL) 96.1 MCH (27.0 - 31.0 PG) 31.5 H RDW (11.5 - 14.5 %) 15.6 H Plt Count (130 - 400 /CUMM) 126 L MPV (7.4 - 10.4 FL) 8.4 Gran % (42.2 - 75.2 %) 64.6 Lymphocytes % (20.5 - 51.1 %) 18.6 L Monocytes % (1.7 - 9.3 %) 11.0 H Eosinophils % (0 - 5 %) 5.2 H Basophils % (0.0 - 2.0 %) 0.6 Absolute Granulocytes (1.4 - 6.5 /CUMM) 3.6 Absolute Lymphocytes (1.2 - 3.4 /CUMM) 1.1 L Absolute Monocytes (0.10 - 0.60 /CUMM) 0.6 Absolute Eosinophils (0.0 - 0.7 /CUMM) 0.3 Absolute Basophils (0.0 - 0.2 /CUMM) 0 PUBS MCHC (33.0 - 37.0 G/DL) 32.8 L Last 24 Hours of Jose Carlos Results: No new cultures Assessment/Plan Impression: Doing well with temperatures and white blood cell count now normal on Unasyn Day 4 of treatment for presumed aspiration pneumonia following alcohol toxicity. Her mental status has improved markedly and appears to be back to her baseline. Suggestion: 1. Discontinue Unasyn 2. Begin Augmentin 875 mg po every 12 hours to complete a total of 5 days of antibiotics
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
--- NOTE | 2016-05-02 14:17 | PN- Psychiatry ---
Assessment/Plan Impression: Identifying Info: 56-year-old 56-year-old single -[place] female presents to [facility] emergency department on 04/27/2016 with altered mental status. She was subsequently found to a BAL of 0.509 and admitted to critical care off. Patient had apparently just graduated [employer] and was helped with her classmates celebrating. She does not normally drink alcohol as she is a kidney transplant recipient. She was subsequently given Ativan for presumed alcohol withdrawal, she is previously had poor reactions to this medication, and became disoriented, confused, and disinhibited. SUBJECTIVE Patient states, "I think I need to talk to someone... It's nothing to dramatic but a lot of little things been building up." OBJECTIVE Mental Status Exam Presentation/Appearance: Cooperative with evaluation. Well groomed, wearing makeup. Lying in bed in street clothes Orientation: x4 Sensorium: Initially somnolent but easily aroused. Eye contact: Appropriate Affect: Somewhat blunted but congruent with stated mood Mood: "I'm all right" Depression: Denies Anxiety: Endorses Thought Content: - Denies SI/HI, AH/VH, PI. States and also believes they will not kill themselves. - Denies Hopeless/Helpless Thoughts Thought Process: Linear Speech: Soft, normal rate Judgment: Fair Insight: Fair Cognition: Memory: Some recent deficits but is able to recall most of the events of her hospitalization. Able to name the last 3 presidents Attention/Concentration: Intact, is able to complete counting tasks and spelled world forward and backwards Abstractions: Abstract, appropriate MMSE: (not completed) Brief ROS Gait: Not observed Sleep: Improved, slept through night yesterday with boyfriend at bedside Appetite: Adequate Last 24 hours of CIWA 8,3,2,0,0,0,0,0,0,0 ASSESSMENT 56-year-old single -[place] female with a remote history of psychiatric hospitalization admitted with altered mental status in the context of alcohol intoxication as well as metabolic acidosis. Given her history her acute confusional state is may have been worsened by administration of Ativan. Her mentation appears to have improved greatly. At present she is not a threat to self or others and is agreeable to outpatient psychiatry, intake appointment has been scheduled. Differential diagnosis Delirium due to multiple etiologies rule out Unspecified mood disorder vs Unspecified anxiety disorder by history Panic Disorder with Agoraphobia by history Alcohol Use Disorder Suggestion: 1. Please include the following in patient's discharge instructions: 05/16/2016 10:45 AM intake appointment with Nida Hopper at [facility] at [address] in [place]. 2. Please continue Librium taper as reccomended by Hayden Tsai APRN: advance to Librium 50mg PO q8h for three doses then Librium 50mg q12h for 3 doses then stop. Continue CIWA. 3. Continue with vitamin supplimentation. 4. Please continue to avoid benzodiazepines, opioid analgesics, and meds with strong anticholinergic properties as much as possible to prevent further confusion. 5. Please initiate the following nonpharmacologic interventions: -Avoid nursing and medical procedures during sleep hours whenever possible - Cluster at night interventions that must be completed as much as possible to minimize sleep disruption - Decrease noise in patient area during sleeping hours - Reduce lighting at night - Ensure patient has any sensory aids close by that he regularly uses Thank you for including psychiatry in this case, we will continue to follow. Hector Ngo APRN, pager [phone] Subjective Subjective: .
--- NOTE | 2016-05-02 14:48 | PN- Nephrology ---
Assessment/Plan Assessment: 1. Stable kidney function - status post living related kidney transplant 2009 2. Encephalopathy secondary to acute alcoholism - resolved. 3. Agitation/paranoid ideation - likely reaction to lorazepam - resolved 4. Possible aspiration pneumonia Suggestion: 1. Continue current regimen including Librium taper 2. Antibiotic therapy per ID 3. Mobilize Subjective Subjective: No longer agitated, confused or paranoid. She seems back to her usual self. No specific complaints. Afebrile, Tmax 100.4 yesterday. Renal function remains normal and stable. Electrolytes okay. Objective Vital Signs and I&Os Vital Signs Date Time Temp Pulse Resp B/P Pulse O2 O2 Flow FiO2 Ox Delivery Rate 05/02 1202 88 112/68 05/02 0855 88 108/76 05/02 0800 86 22 05/02 0800 98.8 86 18 108/70 98 Room Air / 0600 80 20 107/73 / 0400 97.1 84 20 132/68 / 0400 96 Room Air / 0200 86 20 116/83 / 0000 98.2 90 24 128/70 02/07 0000 97 Room Air 02/07 0000 98.2 90 24 128/70 97 Room Air / 2357 90 124/60 05/01 2200 16 16 113/78 05/01 1999 99.7 108 20 140/90 05/01 2000 95 Room Air / 1600 99.6 98 20 120/80 97 Room Air Intake & Output 05/02 1600 /07 0400 / 1600 /06 0400 02/05 1600 02/05 0400 Intake Total 760 640 638 3129 1938 1030 Output Total 0 919 000 7724 790 Balance 760 880 420 185 -732 240 Intake, IV 260 426 053 6548 880 Intake, Oral 500 880 680 520 350 150 Number 1 3 1 1 Bowel Movements Output, Urine 0 943 165 3577 790 Physical Exam: General: Well-developed -Citizen Of [place] female in no acute distress Skin: No rash or lesions HEENT: Conjunctivae pink, sclerae anicteric, mucous membranes dry Neck: Without masses or thyromegaly, no supraclavicular or cervical adenopathy Chest: Clear P&A Heart: Regular rate and rhythm without S3 or rub Abdomen: Soft and nontender without palpable masses or organomegaly Extremities: Without cyanosis or edema; the renal allograft is nontender Neuro: No focal findings, no asterixis or myoclonus Current Medications: Current Medications Sig/Satish Start time Last Medication Dose Route Stop Time Status Admin Acetaminophen 1,000 MG Q6P PRN 04/28 1430 AC 04/30 N/A 1 UNIT IV 1659 Amlodipine Besylate 5 MG DAILY 04/28 1000 AC 05/02 PO 0855 Amoxicillin/ 875 MG Q12 05/02 2200 AC Clavulanate Potassium PO 05/02 2201 Ampicillin Sodium/ 1,500 MG Q6H 04/28 1100 DC 05/02 Sulbactam Sodium IV 05/02 1300 1146 Sodium Chloride 100 ML Chlordiazepoxide HCl 50 MG 0600,1800 05/04 0600 AC PO 05/05 0601 Chlordiazepoxide HCl 50 MG 0200,1000,1800 05/03 1800 DC PO 05/04 1001 Chlordiazepoxide HCl 50 MG 0200,1000,1800 05/03 0200 AC PO 05/03 1801 Chlordiazepoxide HCl 50 MG Q6 05/02 0000 AC 05/02 PO 05/02 1801 1204 Chlordiazepoxide HCl 25 MG Q8P PRN 05/01 1815 AC 05/01 PO 2018 Chlordiazepoxide HCl 75 MG Q6 05/01 1200 DC 05/01 PO 1507 Cholecalciferol 1,000 IU DAILY 04/28 1000 AC 05/02 PO 0852 Folic Acid 1 MG DAILY 05/01 1235 AC 05/02 PO 1203 Insulin Aspart 0 TIDAC 04/28 1200 AC SC Lactobacillus 1 CAP DAILY 04/28 1000 AC 05/02 Acidophilus PO 0853 Levetiracetam 500 MG BID 05/01 1015 AC 05/02 PO 0850 Lorazepam 2 MG .STK-MED ONE 05/01 1546 DC IV 05/01 1547 Metoprolol Tartrate 100 MG BID 04/28 1000 AC 05/02 PO 1202 Morphine Sulfate 2 MG Q4P PRN 04/30 1345 DC 05/02 IV 0641 Multivitamins 1 TAB DAILY 04/28 1000 AC 05/02 Therapeutic PO 0851 Omeprazole 40 MG DAILY AC 05/01 0700 AC 05/02 PO 0544 Oxycodone HCl 10 MG Q6P PRN 05/02 1000 AC 05/02 PO 1303 Prednisone 5 MG DAILY 04/28 1000 AC 05/02 PO 1203 Tacrolimus 2.5 MG DAILY 05/01 1000 AC 05/02 PO 0853 Tacrolimus 3 MG QPM 04/30 2199 AC 05/01 PO 2353 Trimethobenzamide HCl 200 MG TID PRN 04/29 0029 AC IM Results Pertinent Lab Results: Laboratory Tests 05/02 05/01 0535 0440 Chemistry Sodium (137 - 145 mmol/L) 142 142 Potassium (3.5 - 5.1 mmol/L) 3.8 3.7 Chloride (98 - 107 mmol/L) 113 H 117 H Carbon Dioxide (22 - 30 mmol/L) 22 18 L Anion Gap (5 - 16) 7 7 BUN (7 - 17 mg/dL) 10 7 Creatinine (0.5 - 1.0 mg/dL) 0.9 0.9 Estimated GFR (>60 ml/min) > 60 > 60 Glucose (65 - 99 mg/dL) 108 H 122 H Calcium (8.4 - 10.2 mg/dL) 9.0 8.7 Phosphorus (2.5 - 4.5 mg/dL) 3.3 2.2 L Magnesium (1.6 - 2.3 mg/dL) 2.0 1.7 Total Bilirubin (0.2 - 1.3 mg/dL) 0.8 0.7 AST (14 - 36 U/L) 26 35 ALT (9 - 52 U/L) 44 57 H Albumin (3.5 - 5.0 g/dL) 3.1 L 3.1 L Hematology CBC w Diff NO MAN DIFF REQ NO MAN DIFF REQ WBC (4.8 - 10.8 /CUMM) 5.7 8.5 RBC (4.20 - 5.40 /CUMM) 3.51 L 3.33 L Hgb (12.0 - 16.0 G/DL) 11.1 L 10.5 L Hct (37 - 47 %) 33.8 L 31.7 L MCV (81.0 - 99.0 FL) 96.1 95.0 MCH (27.0 - 31.0 PG) 31.5 H 31.5 H RDW (11.5 - 14.5 %) 15.6 H 15.7 H Plt Count (130 - 400 /CUMM) 126 L 111 L MPV (7.4 - 10.4 FL) 8.4 9.1 Gran % (42.2 - 75.2 %) 64.6 81.6 H Lymphocytes % (20.5 - 51.1 %) 18.6 L 8.6 L Monocytes % (1.7 - 9.3 %) 11.0 H 5.9 Eosinophils % (0 - 5 %) 5.2 H 3.5 Basophils % (0.0 - 2.0 %) 0.6 0.4 Absolute Granulocytes (1.4 - 6.5 /CUMM) 3.6 7.0 H Absolute Lymphocytes (1.2 - 3.4 /CUMM) 1.1 L 0.7 L Absolute Monocytes (0.10 - 0.60 /CUMM) 0.6 0.5 Absolute Eosinophils (0.0 - 0.7 /CUMM) 0.3 0.3 Absolute Basophils (0.0 - 0.2 /CUMM) 0 0 PUBS MCHC (33.0 - 37.0 G/DL) 32.8 L 33.1 04/30 04/30 02/05 1545 1337 1130 Chemistry Sodium (137 - 145 mmol/L) 141 Cancelled 145 Potassium (3.5 - 5.1 mmol/L) 4.8 Cancelled 4.3 Chloride (98 - 107 mmol/L) 116 H Cancelled 116 H Carbon Dioxide (22 - 30 mmol/L) 15 L Cancelled 19 L Anion Gap (5 - 16) 10 Cancelled 9 BUN (7 - 17 mg/dL) 5 L Cancelled 6 L Creatinine (0.5 - 1.0 mg/dL) 0.8 Cancelled 0.8 Estimated GFR (>60 ml/min) > 60 > 60 Glucose (65 - 99 mg/dL) 137 H Cancelled 122 H Calcium (8.4 - 10.2 mg/dL) 7.8 L Cancelled 8.2 L Phosphorus (2.5 - 4.5 mg/dL) 2.5 Cancelled 1.6 L Magnesium (1.6 - 2.3 mg/dL) 2.2 Cancelled 1.7 Total Bilirubin (0.2 - 1.3 mg/dL) 0.8 Cancelled 0.8 AST (14 - 36 U/L) 49 H Cancelled 56 H ALT (9 - 52 U/L) 70 H Cancelled 71 H Troponin I (< 0.11 ng/ml) < 0.01 Albumin (3.5 - 5.0 g/dL) 2.9 L Cancelled 3.1 L 04/30 0400 Chemistry Sodium (137 - 145 mmol/L) 142 Potassium (3.5 - 5.1 mmol/L) 4.5 Chloride (98 - 107 mmol/L) 113 H Carbon Dioxide (22 - 30 mmol/L) 22 Anion Gap (5 - 16) 7 BUN (7 - 17 mg/dL) 6 L Creatinine (0.5 - 1.0 mg/dL) 0.8 Estimated GFR (>60 ml/min) > 60 Glucose (65 - 99 mg/dL) 98 Calcium (8.4 - 10.2 mg/dL) 7.6 L Phosphorus (2.5 - 4.5 mg/dL) 1.6 L Magnesium (1.6 - 2.3 mg/dL) 1.8 Total Bilirubin (0.2 - 1.3 mg/dL) 0.7 AST (14 - 36 U/L) 53 H ALT (9 - 52 U/L) 70 H Albumin (3.5 - 5.0 g/dL) 2.9 L Hematology CBC w Diff NO MAN DIFF REQ WBC (4.8 - 10.8 /CUMM) 11.4 H RBC (4.20 - 5.40 /CUMM) 3.37 L Hgb (12.0 - 16.0 G/DL) 10.7 L Hct (37 - 47 %) 32.3 L MCV (81.0 - 99.0 FL) 95.8 MCH (27.0 - 31.0 PG) 31.7 H RDW (11.5 - 14.5 %) 16.1 H Plt Count (130 - 400 /CUMM) 95 L MPV (7.4 - 10.4 FL) 9.4 Gran % (42.2 - 75.2 %) 85.4 H Lymphocytes % (20.5 - 51.1 %) 8.8 L Monocytes % (1.7 - 9.3 %) 4.1 Eosinophils % (0 - 5 %) 1.2 Basophils % (0.0 - 2.0 %) 0.5 Absolute Granulocytes (1.4 - 6.5 /CUMM) 9.7 H Absolute Lymphocytes (1.2 - 3.4 /CUMM) 1.0 L Absolute Monocytes (0.10 - 0.60 /CUMM) 0.5 Absolute Eosinophils (0.0 - 0.7 /CUMM) 0.1 Absolute Basophils (0.0 - 0.2 /CUMM) 0.1 PUBS MCHC (33.0 - 37.0 G/DL) 33.1
[2016-05-03 00:02] VITALS: BP 100/68
[2016-05-03 07:54] LABS: ABSOLUTE BASOPHIL COUNT 0 /CUMM (0.0-0.2); ABSOLUTE EOSINOPHIL COUNT 0.3 /CUMM (0.0-0.7); ABSOLUTE GRANULOCYTE CT 4.6 /CUMM (1.4-6.5); ABSOLUTE LYMPH COUNT 1.1 /CUMM (1.2-3.4); ABSOLUTE MONOCYTE COUNT 0.6 /CUMM (0.10-0.60); BASOPHIL % 0.5 % (0.0-2.0); EOSINOPHIL % 4.4 % (0-5); GRANULOCYTE % 68.9 % (42.2-75.2); HEMATOCRIT 33.1 % (37-47); MEAN CORPUSCULAR HGB 31.6 PG (27.0-31.0); MEAN CORPUSCULAR HGB CONC 33.2 G/DL (33.0-37.0); MEAN CORPUSCULAR VOLUME 95.2 FL (81.0-99.0); MEAN PLATELET VOLUME 8.7 FL (7.4-10.4); PLATELET COUNT 146 /CUMM (130-400); RBC DISTRIBUTION WIDTH 15.6 % (11.5-14.5); RED BLOOD CELL CT 3.48 /CUMM (4.20-5.40); WHITE BLOOD CELL COUNT 6.6 /CUMM (4.8-10.8)
[2016-05-03 08:00] VITALS: BP 114/70
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
[2016-05-03 09:25] VITALS: BP 114/70
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
[2016-05-03] MEDS ORDERED: CHLORDIAZEPOXID25 M3 PO (10:52)
--- NOTE | 2016-05-03 10:54 | Patient Discharge Instructions ---
Discharge Instructions General Discharge Information You were seen/treated for: Alcohol poisoning Watch for these problems: seizures fever change in mental status chest pain Special Instructions: 1. 05/16/2016 10:45 AM intake appointment with Nida Hopper at [facility] at [address] [place] [address] in [place]. 2. Follow up with your PCP in one week 3. Follow up with your transplant team per routine schedule Diet Recommended Diet: Heart Healthy Activity Full Activity/No Limits: Yes Acute Coronary Syndrome Inclusion Criteria At DC or during hospital stay patient has or had the following: ACS DIAGNOSIS No Discharge Core Measures Meds if any: Prescribed or Continued at Discharge Meds if any: NOT Prescribed or Continued at Discharge Congestive Heart Failure Inclusion Criteria At DC or during hospital stay patient has or had the following: CHF DIAGNOSIS No Discharge Core Measures Meds if any: Prescribed or Continued at Discharge Meds if any: NOT Prescribed or Continued at Discharge Cerebrovascular accident Inclusion Criteria At DC or during hospital stay patient has or had the following: CVA/TIA Diagnosis No Discharge Core Measures Meds if any: Prescribed or Continued at Discharge Meds if any: NOT Prescribed or Continued at Discharge Venous thromboembolism Inclusion Criteria VTE Diagnosis No VTE Type NONE VTE Confirmed by (Test) NONE Discharge Core Measures - Per Current guidelines, there needs to be overlap - treatment for the first 5 days of Warfarin therapy. - If discharged on Warfarin prior to 5 days of - overlap therapy, the patient will need to be - assessed for post discharge needs including - *Post discharge parental anticoagulation - *Warfarin and/or parental anticoagulation education - *Follow up date to check INR post discharge At least 5 days overlap therapy as Inpatient No Meds if any: Prescribed or Continued at Discharge Note: Overlap Therapy is Warfarin and Anticoagulant Meds if any: NOT Prescribed or Continued at Discharge
== END 2016-05-03 14:55 | DRG 177 ==
LOC: ENRESERVDT → ENRESERVTM → ERH 18:15 → ENPENDDIS 21:23 → ERH 21:23 → ERHI 21:23 → CRI 21:23 → ERHI 23:07 → CRI 04-28 00:23 → 1NO 05-02 20:09
PROVIDERS: Internal Medicine; Physician Assistant; Student in an Organized Health Care Education/Training Program; ADMIT Internal Medicine
DX: J69.0 Pneumonitis due to inhalation of food and vomit (principal); G93.40 Encephalopathy, unspecified; E87.2 Acidosis; I13.0 Hypertensive heart and chronic kidney disease with heart failure and stage 1 through stage 4 chronic kidney disease, or unspecified chronic kidney disease; I50.32 Chronic diastolic (congestive) heart failure; F05 Delirium due to known physiological condition; Z94.0 Kidney transplant status; T51.0X4A Toxic effect of ethanol, undetermined, initial encounter; N18.9 Chronic kidney disease, unspecified; G40.909 Epilepsy, unspecified, not intractable, without status epilepticus; F10.129 Alcohol abuse with intoxication, unspecified; Y90.8 Blood alcohol level of 240 mg/100 ml or more; K21.9 Gastro-esophageal reflux disease without esophagitis; E78.5 Hyperlipidemia, unspecified; E11.9 Type 2 diabetes mellitus without complications; R40.0 Somnolence; Y92.099 Unspecified place in other non-institutional residence as the place of occurrence of the external cause
CPT/HCPCS: 1NP; CCU; ERO; 36415; 74000; 80307; 81003; 82436; 87040; 87086; 87449; 87450; 87804; 87804-59; 93005; 93010; 93306; 95816; 97161-GP; 99232; 99233; G0480; J0131; J1630; J1644; J1940; J1953; J2060; J2270; J2405; J3250; J3490; J7040; J7042; J7060; J7512; J7517; Q2036; S5012